=== PATIENT | female | born 1950 | race Caucasian/White ===

== ENCOUNTER 2017-02-03 12:53 | Day surgery (SDC) | payer OTHER ==
[2017-02-02 10:50] VITALS: BMI 34.5
[2017-02-03] MEDS ORDERED: PROPOFOL 20 ML ONE ×5 (14:00→14:24)
[2017-02-03 15:05] VITALS: TEMP 97.8
[2017-02-03 15:13] VITALS: PULSE 60
[2017-02-03 15:55] VITALS: BP 129/63
--- NOTE | 2017-02-07 12:39 | PATH ---
Surgical Pathology Report Patient Name: GELY APODACA [facility]. Rec. #: [id number] /Age/Gender: 1950 (Age: 66) / F Account: [id number] Location: [facility]-ENDOSCOPY Taken: 02/03/2017 Received: 02/06/2017 Reported: 02/07/2017 Physicians: Kermit Dove M.D. Specimen(s) Received A: BX ASCENDING COLON POLYP B: TRANSVERSE COLON POLYP Clinical History History of diverticulitis Polyps, version of colitis in sigmoid and rectum Final Diagnosis A. COLON, ASCENDING, BIOPSY: HYPERPLASTIC POLYP. B. COLON, TRANSVERSE, POLYPECTOMY: TUBULAR ADENOMA. Comment: Recommend correlation with clinical findings and follow up as clinically indicated. Electronically Signed Saulo Li M.D. Gross Description A. Received in formalin, labeled "biopsy ascending colon polyp" is a wall, irregular portion of soft tissue measuring 0.3 cm. in greatest dimension. The specimen is submitted in toto in one cassette. B. Received in formalin, labeled "transverse colon polyp" are 2 wall, irregular to polypoid portions of soft tissue measuring 0.1 and 0.4 cm. in greatest dimension. The specimens are submitted in toto in one cassette. 02/06/201702/06/2017
== END 2017-02-03 15:55 | disposition home or self-care (01) ==
LOC: JASU-ENDO 12:53
PROVIDERS: ATTEND Internal Medicine Gastroenterology
PROC: 0DBK8ZX Excision of Ascending Colon, Via Natural or Artificial Opening Endoscopic, Diagnostic (ICD-10-PCS; 2017-02-03)
PROC: 0DBL8ZX Excision of Transverse Colon, Via Natural or Artificial Opening Endoscopic, Diagnostic (ICD-10-PCS; principal; 2017-02-03 13:45)
DX: K57.30 Diverticulosis of large intestine without perforation or abscess without bleeding (principal); D12.2 Benign neoplasm of ascending colon; D12.4 Benign neoplasm of descending colon; D12.3 Benign neoplasm of transverse colon; K64.8 Other hemorrhoids; K52.89 Other specified noninfective gastroenteritis and colitis; Z93.3 Colostomy status
CPT/HCPCS: 88305-TC

== ENCOUNTER 2017-04-18 06:16 | Inpatient (IN) | payer OTHER ==
--- NOTE | 2017-04-17 11:22 | HP ---
DATE OF ADMISSION: 04/18/2017 DATE OF DICTATION: 02/20/2017 This is a nxv-thdtip-tpxuwhkpt history and physical examination for anticipated takedown of colostomy. ADMITTING DIAGNOSIS: Status colostomy, history of complicated perforated diverticulitis. BRIEF HISTORY: This is a 66-year-old female who, in October of 2015, required an emergency laparotomy with sigmoid colectomy, colostomy, and mucous fistula for perforated complicated diverticulitis. She had a protracted hospital course, but eventually recovered. She has been doing well as an outpatient and presents now for surgical management in hopes of reversal of her colostomy. PAST MEDICAL HISTORY: Consistent with hypertension and breast cancer, asthma, as well as complicated diverticulitis. PAST SURGICAL HISTORY: Includes a right mastectomy and the appendectomy as well as the sigmoid colectomy and colostomy. She had a colonoscopy prior to this admission to ensure that there was no other disease, and the colonoscopy was unremarkable. ALLERGIES: She has allergy to LEVAQUIN. FAMILY HISTORY: Negative for cancer in the immediate family. SOCIAL HISTORY: Negative for alcohol, negative for tobacco. REVIEW OF SYSTEMS: General: Denies fatigue or malaise. Cardiac: Denies chest pain or palpitations. Respiratory: Denies shortness of breath or wheeze. Gastrointestinal: No nausea, no vomiting. Genitourinary: Denies dysuria. Musculoskeletal: Denies joint pain or joint swelling. Psychiatric: Denies depression, anxiety, or hearing voices. PHYSICAL EXAMINATION: General: This is an obese 66-year-old female in no distress. HEENT: Her head is normocephalic. Her sclerae are anicteric. Neck: Supple. Chest: Clear. Abdomen: Soft. It is nontender. She has a well-healed midline scar. She has a mucous fistula that is almost completely overgrown by skin. Her colostomy is pink and protruding. ASSESSMENT: This is a 66-year-old female status colostomy with history of complicated diverticulitis. At this point, she wishes to have reversal. She will be admitted to the hospital. PLAN: Her anticipated admission date is April 18, 2017, with plans for surgery on April 19, 2017. She will receive IV hydration, bowel preparation. She will get invanz prophylaxis prior to incision. She will be medically optimized by Dr. Paul Nix prior to the surgery. She is anticipated to stay in the hospital for 5 postoperative days. She understands that she will need to be sent home with visiting nurse services, as well. Risks and benefits of the surgery have been explained to the patient in detail. These are including, but not limited to, the possibility of injury to viscera or bladder, the possibility of incisional hernia, the possibility of blood loss requiring blood transfusion, the possibility of anastomotic leak, the possibility of infection, the possibility of anastomotic stricture, plus a multitude of medical risks including, but not limited to, cardiac, neurologic, pulmonary, and vascular complications, even . The patient understands these risks and is agreeable to surgery. She also understands that this ia purely elective operation, and that the risks of surgery clearly outweigh the risks of leaving her colostomy as is, but for personal reasons and lifestyle choices, she wishes to undergo the risk of surgery in order to eliminate her colostomy. She understands that if she does have an anastomotic leak, she may require replacement of the colostomy in an emergency setting. ANTICIPATED SURGERY: Exploratory laparotomy and reversal of colostomy, takedown of colostomy, takedown of mucous fistula, and partial colectomy. DO YORDY SNEED/[id number]
[2017-04-18 07:42] VITALS: BMI 34.7
[2017-04-18] MEDS: hydrALAZINE HCL 50 MG TABLET (FP) PO SCH ×3 (08:38→22:20)
[2017-04-18] MEDS ORDERED: PEG 3350/NA SULF BICARB CL/KCL 4000 ML SOLN.RECON PO ONE (09:00)
[2017-04-18] MEDS ORDERED: ERTAPENEM SODIUM 1 GM in SODIUM CHLORIDE 50 ML IVPB ONE (09:00)
[2017-04-18] MEDS ORDERED: NEBIVOLOL 10 MG TABLET (FP) PO SCH (10:00)
[2017-04-18] MEDS ORDERED: HYDROCHLOROTHIAZIDE 25 MG TABLET (FP) PO SCH (10:00)
[2017-04-18] MEDS: DEXTROSE 5%-0.45% SALINE 1,000 ML IV SCH (11:12)
[2017-04-18] MEDS: VALSARTAN 160 MG TABLET (UD) PO SCH (11:16)
--- NOTE | 2017-04-18 14:32 | EKG ---
Test Reason : Blood Pressure : / mmHG Vent. Rate : 053 BPM Atrial Rate : 053 BPM P-R Int : 196 ms QRS Dur : 094 ms QT Int : 434 ms P-R-T Axes : 053 -16 021 degrees QTc Int : 407 ms SINUS BRADYCARDIA WITH SINUS ARRHYTHMIA OTHERWISE NORMAL ECG WHEN COMPARED WITH ECG OF 23-APR-2014 10:21, VENT. RATE HAS DECREASED BY 40 BPM Confirmed by ULIS SALGADO, SUZANNE ([id number]) on 04/18/2017 2:31:47 PM Referred By: Abhay VERDE Confirmed By:SUZANNE SMITH MD
[2017-04-18] MEDS: NEBIVOLOL 10 MG TABLET (FP) PO SCH (22:20)
[2017-04-19] MEDS: DEXTROSE 5%-0.45% SALINE 1,000 ML IV SCH ×2 (04:39→08:52)
[2017-04-19 05:11] LABS: HEMATOCRIT 40.6 % (32.4-45.2); HEMOGLOBIN 13.9 GM/dL (10.7-15.3); MCHC 34.3 g/dl (32.0-36.0); MEAN CELL VOLUME 87.7 fl (80-96); MEAN PLT VOLUME 8.5 fl (7.5-11.1); PLATELET COUNT 185 K/MM3 (134-434); RBC 4.63 M/mm3 (3.60-5.2); WHITE BLOOD COUNT 8.1 K/mm3 (4.0-10.0)
[2017-04-19 05:24] LABS: INR 1.14 (0.82-1.09); PROTHROMBIN TIME (PATIENT) 12.9 SEC (9.98-11.88)
[2017-04-19 05:27] LABS: ACTIVATED PTT 33.8 SECONDS (26.9-34.4)
[2017-04-19 05:35] LABS: ANION GAP 8 (8-16); BLOOD UREA NITROGEN 12 mg/dL (7-18); CALCIUM 8.6 mg/dL (8.5-10.1); CHLORIDE 109 mmol/L (98-107); CO2 26 mmol/L (21-32); CREATININE 0.9 mg/dL (0.55-1.02); GLUCOSE,RANDOM 115 mg/dL (74-106); POTASSIUM 3.3 mmol/L (3.5-5.1); SODIUM 143 mmol/L (136-145)
[2017-04-19] MEDS: hydrALAZINE HCL 50 MG TABLET (FP) PO SCH ×3 (06:39→22:54)
[2017-04-19] MEDS ORDERED: KCL 10 MEQ IVPB 10 MEQ/100 ML INFUS.BAG IVPB SCH (07:15)
[2017-04-19] MEDS ORDERED: POTASSIUM CHLORIDE 30 MEQ in SODIUM CHLORIDE 300 ML IVPB ONE (08:15)
[2017-04-19] MEDS ORDERED: PT OWN MED DRAWER 7, Y5N ONE ×3 (08:48→22:52)
[2017-04-19] MEDS ORDERED: ERTAPENEM SODIUM 1 GM in SODIUM CHLORIDE 50 ML IVPB ONE (09:00)
[2017-04-19] MEDS: NEBIVOLOL 10 MG TABLET (FP) PO SCH (09:02)
[2017-04-19] MEDS: VALSARTAN 160 MG TABLET (UD) PO SCH (09:03)
[2017-04-19] MEDS ORDERED: VALSARTAN 160 MG TABLET (UD) PO SCH (10:00)
[2017-04-19] MEDS ORDERED: HYDROCHLOROTHIAZIDE 12.5 MG CAPSULE (FP) PO SCH (10:00)
[2017-04-19] MEDS ORDERED: MIDAZOLAM HCL 2 MG/2 ML SINGLE DOSE VIAL ONE ×2 (12:12)
[2017-04-19] MEDS ORDERED: NEOSTIGMINE METHYLSULFATE 0.5 MG/ML - 10 ML MDV ONE ×2 (12:50→17:10)
[2017-04-19] MEDS ORDERED: BUPIVACAINE HCL/PF 0.25% (2.5MG/ML) 10 ML VIAL ONE (14:41)
[2017-04-19] MEDS ORDERED: BUPIVACAINE HCL/PF 0.5% (5MG/ML) 10 ML VIAL ONE (14:41)
[2017-04-19] MEDS ORDERED: DEXAMETHASONE SOD PHOSPHATE/PF 10 MG/ML SDV ONE (14:41)
[2017-04-19] MEDS ORDERED: ERTAPENEM SODIUM 1 GM VIAL ONE (14:45)
[2017-04-19] MEDS ORDERED: GlUCAGON HUMAN RECOMBINANT 1 MG/VIAL ONE (14:56)
[2017-04-19] MEDS ORDERED: PROPOFOL 20 ML ONE ×2 (15:11)
[2017-04-19] MEDS ORDERED: ROCURONIUM BROMIDE 50 MG/5 ML VIAL ONE ×2 (15:12→16:03)
[2017-04-19] MEDS ORDERED: SUCCINYLCHOLINE CHLORIDE 200 MG/10 ML VIAL ONE (15:12)
[2017-04-19] MEDS ORDERED: cefOXitin SODIUM 1 GM VIAL (RESTRICTED TO ID) IVPB ONE (15:20)
[2017-04-19] MEDS ORDERED: CEFOXITIN SODIUM 1 GM IVPB ONE (15:26)
[2017-04-19] MEDS ORDERED: LIDOCAINE HCL/PF 2% SDV 5ML VIAL ONE (15:30)
[2017-04-19] MEDS ORDERED: PHENYLEPHRINE HCL 10 MG/1 ML SINGLE DOSE VIAL ONE (15:30)
[2017-04-19] MEDS ORDERED: DEXAMETHASONE SOD PHOSPHATE 4 MG/1 ML VIAL ONE (15:30)
[2017-04-19] MEDS ORDERED: GLYCOPYRROLATE 0.2 MG/1 ML VIAL ONE ×2 (15:38→17:11)
[2017-04-19] MEDS ORDERED: fentaNYL CITRATE 250 MCG/5 ML VIAL ONE (15:41)
[2017-04-19] MEDS ORDERED: CALCIUM CHLORIDE 1 GM/10 ML *DISP.SYRIN ONE (16:56)
[2017-04-19] MEDS ORDERED: HYDROmorphone HCL CARPU-JECT 2 MG/1 ML DISP.SYRIN IVPUSH PRN (17:56)
--- NOTE | 2017-04-19 18:25 | OP ---
Operative Note - Note: Operative Date: 04/19/17 Pre-Operative Diagnosis: status colostomy, history complicated diverticulitis Operation: laparotomy, take down of colostomy and mucous fistula, left colectomy , reversal of colostomy, primary repair incisional hernia x 3, splenic flexure takedown, omental patch, rigid sigmoidoscopy, anal dilatation, lavage, extensive lysis of adhesions Findings: diseased left colon, parastomal hernia, incisional hernia at mucous fistula and upper pole of incision, adhesions Post-Operative Diagnosis: Same as Pre-op Surgeon: Mansoor Heart Svp Programmatic Tv: Wong Jaramillo Anesthesiologist/OFFICE SERVICES SPECIALIST: Kaley Leyva Anesthesia: General Specimens Removed: left colon with colostomy and mucous fistula with small portion of rectum Estimated Blood Loss (mls): 200
[2017-04-19] MEDS ORDERED: ONDANSETRON 4 MG/2 ML VIAL IVPUSH PRN (18:29)
[2017-04-19] MEDS ORDERED: HYDROmorphone *PCA* 10MG/50ML DISP.SYRIN PCA SCH (18:30)
[2017-04-19] MEDS ORDERED: HYDROmorphone *PCA* 10MG/50ML DISP.SYRIN PCA ONE ×2 (18:40→18:55)
[2017-04-19] MEDS ORDERED: ACETAMINOPHEN 325 MG TABLET (FP) PO PRN (18:42)
[2017-04-19] MEDS ORDERED: NEBIVOLOL 10 MG TABLET (FP) PO SCH (22:00)
[2017-04-20] MEDS: hydrALAZINE HCL 50 MG TABLET (FP) PO SCH ×3 (06:27→22:15)
[2017-04-20] MEDS: DEXTROSE 5%-0.45% SALINE 1,000 ML IV SCH ×2 (06:28→14:27)
[2017-04-20 08:20] LABS: HEMATOCRIT 40.3 % (32.4-45.2); HEMOGLOBIN 13.2 GM/dL (10.7-15.3); MCH 29.1 pg (25.7-33.7); MCHC 32.7 g/dl (32.0-36.0); MEAN CELL VOLUME 88.9 fl (80-96); MEAN PLT VOLUME 9.1 fl (7.5-11.1); PLATELET COUNT 201 K/MM3 (134-434); RBC 4.53 M/mm3 (3.60-5.2); RDW 14.1 % (11.6-15.6); WHITE BLOOD COUNT 16.7 K/mm3 (4.0-10.0)
[2017-04-20 08:58] LABS: ANION GAP 10 (8-16); BLOOD UREA NITROGEN 18 mg/dL (7-18); CHLORIDE 107 mmol/L (98-107); CO2 24 mmol/L (21-32); CREATININE 1.1 mg/dL (0.55-1.02); GLUCOSE,RANDOM 143 mg/dL (74-106); MAGNESIUM 1.8 mg/dL (1.8-2.4); PHOSPHOROUS 3.9 mg/dL (2.5-4.9); POTASSIUM 3.6 mmol/L (3.5-5.1); SODIUM 141 mmol/L (136-145)
[2017-04-20] MEDS ORDERED: HYDROCHLOROTHIAZIDE 12.5 MG CAPSULE (FP) PO SCH ×2 (10:00)
[2017-04-20] MEDS: ENOXAPARIN NA (PORCINE) 40 MG/0.4 ML DISP.SYRIN SQ SCH (10:17)
[2017-04-20] MEDS: PANTOPRAZOLE SODIUM 40 MG VIAL IVPUSH SCH (10:19)
[2017-04-20] MEDS: VALSARTAN 160 MG TABLET (UD) PO SCH (10:19)
[2017-04-20] MEDS: NEBIVOLOL 10 MG TABLET (FP) PO SCH ×2 (10:19→22:15)
--- NOTE | 2017-04-20 11:19 | PN ---
Progress Note (short form) - Note Progress Note: Pt is day#1 s/p lap colostomy reversal. Doing well on BELT CHANGER, minimal pain, no complaints. No apparent anesthetic complications. Continue current treatment.
[2017-04-20] MEDS ORDERED: ERTAPENEM SODIUM 1 GM in SODIUM CHLORIDE 50 ML IVPB ONE (12:00)
[2017-04-20] MEDS ORDERED: ERTAPENEM SODIUM 1 GM/50 ML PRE-DOCKED IVPB ONE (12:00)
--- NOTE | 2017-04-20 13:42 | PN ---
Progress Note (short form) - Note Progress Note: surgery pt seen and examined. feels tired/weak. minimal pain. not oob. 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
--- NOTE | 2017-04-20 16:27 | OP ---
DATE OF OPERATION: 04/19/2017 PREOPERATIVE DIAGNOSIS: Status colostomy with history of complicated diverticulitis. POSTOPERATIVE DIAGNOSES: 1. Status colostomy with history of complicated diverticulitis. 2. Parastomal hernia. 3. Incisional hernia x2. PROCEDURE: Exploratory laparotomy, takedown of colostomy, takedown of mucous fistula, reversal of colostomy, left colectomy with brfm-cw-nbst anastomosis, splenic flexure takedown, omental patch, extensive lysis of adhesions, lavage, primary repair of incisional hernia x3, rigid sigmoidoscopy, anal dilatation. SURGEON: Mansoor Heart DO EXTENSION EDUCATOR: Wong Jaramillo MD ANESTHESIOLOGIST: Kaley Leyva MD BLOOD LOSS: Approximately 200 mL. SPECIMEN: Left colon with colostomy and mucous fistula with small portion of rectum. DRAINS: A Jame-Israel drain in the pelvis. DISPOSITION: Recovery room in stable condition. INTRAOPERATIVE FINDINGS: Extensive adhesions with a parastomal hernia, with a hernia around the mucous fistula and a ventral hernia just above the midline incision. Also, diseased left-sided colon with diverticula. BRIEF HISTORY: A 66-year-old female who previously underwent emergency surgery with colostomy and mucous fistula for complicated, perforated diverticulitis. She presents now for reversal. DESCRIPTION OF PROCEDURE: The patient was placed in the lithotomy position. The abdomen was prepped and draped in sterile fashion. A vertical incision was made from the umbilicus down to the pubis. The skin was skived around the mucous fistula. Electrocautery was used to go through subcutaneous tissue. The fascia was opened into the midline. The abdominal cavity was entered sharply. Significant adhesions were taken down off the abdominal wall. The midline was completely open to the mucous fistula. This was dissected off the fascia and completely freed of its abdominal wall attachments. Small-bowel adhesions were carefully taken off of the mucous fistula. It was noted to be viable. At this point, attention was turned toward the colostomy. An ellipse of skin was cut out around the colostomy. The colostomy was then dissected off of its adipose attachments and fascial attachments and delivered into the abdominal cavity. The segment of distal descending colon appeared to have disease with diverticula. Therefore, decision was made in order to do a splenic flexure takedown in order to anastomose to a healthier segment. Splenic flexure was taken down using electrocautery as well as LigaSure device. At this point, a portion of distal transverse colon was anastomosed to the rectum in a gbkz-ik-qbra fashion. The transverse colon was anastomosed to the rectum in a jxzb-ob-vhbl fashion using a PARDEEP 80 blue-load stapler. A TA stapler was used to close the enterotomy. The mesentery of the left colon was divided with LigaSure device. An omental patch was sewn to the transverse staple line. At this point, the customer marketing assistant went below. An anal dilatation was done. A rigid sigmoidoscopy was done up to the anastomosis without passing it. It was inspected, appeared to be viable from the inside. Air insufflation test was done under water with no leakage noted. The colostomy was also visually inspected, externally appeared to be viable. It was patent as far as palpation was done, and air was able to pass from proximal to distal and distal to proximal. At this point, a vigorous lavage was done, and all return was clear. A Jame-Israel drain was left in the pelvis next to the anastomosis and brought out through the right lower quadrant. The patient was noted previously to have a parastomal hernia at the colostomy takedown site. She also had a hernia at the mucous fistula takedown site, and there was a ventral hernia approximately 3 cm above the upper portion of the incision. Next, the peritoneum of the colostomy site was closed with a running PDS suture. The midline incision was then closed with running PDS sutures and interrupted PDS sutures. This incorporated, completely closing, the superior and inferior hernias. These are likely to recur as no mesh was used. Attention was then turned toward the anterior fascia of the colostomy site, which was closed with interrupted 0 PDS sutures. The wound was then irrigated, left open , and packed with Iodoform gauze. Dry dressing was placed. The Jame-Israel drain was secured with a silk drain stitch. Overall, the patient tolerated the procedure well. There were no complications. Foster catheter, which was placed at the beginning of the operation, was removed at the end. The patient's disposition was to recovery room, then to the regular floor where she would await return of bowel function and expect to stay in the hospital for at least one week. Patient very likely is expected to develop incisional hernias from this procedure due to the poor fascial integrity and the necessity of repairing 3 incisional hernias primarily without mesh. DO YORDY SNEED/[id number] MTDD
[2017-04-20] MEDS ORDERED: PT OWN MED DRAWER 7, Y5N ONE (16:49)
[2017-04-21] MEDS: DEXTROSE 5%-0.45% SALINE 1,000 ML IV SCH ×3 (03:00→18:29)
[2017-04-21] MEDS: hydrALAZINE HCL 50 MG TABLET (FP) PO SCH ×3 (06:37→22:11)
[2017-04-21 08:38] LABS: BASO % 0.7 % (0-2.0); EOS % 0.9 % (0-4.5); HEMATOCRIT 38.7 % (32.4-45.2); HEMOGLOBIN 12.5 GM/dL (10.7-15.3); LYMPH % 11.9 % (8-40); MCH 28.9 pg (25.7-33.7); MCHC 32.3 g/dl (32.0-36.0); MEAN CELL VOLUME 89.6 fl (80-96); MEAN PLT VOLUME 9.2 fl (7.5-11.1); MONO % 7.1 % (3.8-10.2); NEUT % 79.4 % (42.8-82.8); PLATELET COUNT 172 K/MM3 (134-434); RBC 4.32 M/mm3 (3.60-5.2); WHITE BLOOD COUNT 13.2 K/mm3 (4.0-10.0)
[2017-04-21 08:50] LABS: ANION GAP 7 (8-16); BLOOD UREA NITROGEN 19 mg/dL (7-18); CALCIUM 8.5 mg/dL (8.5-10.1); CHLORIDE 108 mmol/L (98-107); CO2 26 mmol/L (21-32); GLUCOSE,RANDOM 101 mg/dL (74-106); PHOSPHOROUS 2.4 mg/dL (2.5-4.9); POTASSIUM 3.3 mmol/L (3.5-5.1); SODIUM 141 mmol/L (136-145)
[2017-04-21] MEDS ORDERED: PT OWN MED DRAWER 7, Y5N ONE (09:48)
[2017-04-21] MEDS: ENOXAPARIN NA (PORCINE) 40 MG/0.4 ML DISP.SYRIN SQ SCH (09:52)
[2017-04-21] MEDS: PANTOPRAZOLE SODIUM 40 MG VIAL IVPUSH SCH (09:52)
[2017-04-21] MEDS: VALSARTAN 160 MG TABLET (UD) PO SCH (09:52)
[2017-04-21] MEDS: NEBIVOLOL 10 MG TABLET (FP) PO SCH ×2 (09:52→22:10)
--- NOTE | 2017-04-21 10:29 | PN ---
Progress Note (short form) - Note Progress Note: POD #2 - s/p laparotomy/colostomy reversal under GA. VSS. Pt. doing well, resting comfortably in bed. No complaints. Has only used the DISTRIBUTION SPECIALIST once last night and once this morning. Will discontinue DISTRIBUTION SPECIALIST and order oxycodone. Continue current care.
[2017-04-21] MEDS ORDERED: oxyCODONE HCL 5 MG TABLET PO PRN (10:30)
--- NOTE | 2017-04-21 14:30 | PN ---
Progress Note (short form) - Note Progress Note: surgery pt seen and examined. still not walking. minimal pain. not oob. afebrile abd-soft, nt, dressing c/d/i, brittany sero-sanguinous u/o 1250 A/P 1) Pod#2- cont npo, taveras, brittany, ivf, finish abx 2) pain- morphine, lortab 3) prophylaxis- lovenox, protonix, oob, spirometer 4) htn- on home meds 5) elevated cr- resolved
[2017-04-21] MEDS ORDERED: POTASSIUM PHOSPHATE 27 MM in DEXTROSE 5%-WATER - 250 ML IVPB ONE (15:00)
[2017-04-21] MEDS ORDERED: POTASSIUM PHOSPHATE 27 MM in DEXTROSE 5%-WATER - 500 ML IVPB ONE (15:00)
[2017-04-21] MEDS: oxyCODONE HCL 5 MG TABLET PO PRN (20:37)
[2017-04-22] MEDS: hydrALAZINE HCL 50 MG TABLET (FP) PO SCH ×3 (05:55→22:19)
[2017-04-22 08:06] LABS: BASO % 0.5 % (0-2.0); EOS % 2.8 % (0-4.5); HEMATOCRIT 36.8 % (32.4-45.2); HEMOGLOBIN 12.3 GM/dL (10.7-15.3); MCH 29.7 pg (25.7-33.7); MCHC 33.3 g/dl (32.0-36.0); MEAN CELL VOLUME 88.9 fl (80-96); MEAN PLT VOLUME 8.5 fl (7.5-11.1); MONO % 7.9 % (3.8-10.2); NEUT % 76.8 % (42.8-82.8); PLATELET COUNT 176 K/MM3 (134-434); RBC 4.13 M/mm3 (3.60-5.2); WHITE BLOOD COUNT 10.1 K/mm3 (4.0-10.0)
[2017-04-22 08:36] LABS: MAGNESIUM 1.9 mg/dL (1.8-2.4)
--- NOTE | 2017-04-22 10:00 | PN ---
Progress Note (short form) - Note Progress Note: surgery pt seen and examined. sitting in chair. flatus. feels well. afebrile abd-soft, nt, dressing c/d/i, brittany sero-sanguinous u/0 1425 A/P 1) Pod#3- cont npo, brittany, ivf, d/c taveras 2) pain- morphine, lortab 3) prophylaxis- lovenox, protonix, oob, spirometer 4) htn- on home meds 5) elevated cr- resolved will change packing tomorrow
[2017-04-22] MEDS ORDERED: PT OWN MED DRAWER 7, Y5N ONE ×2 (10:42→22:16)
[2017-04-22] MEDS: VALSARTAN 160 MG TABLET (UD) PO SCH (10:46)
[2017-04-22] MEDS: NEBIVOLOL 10 MG TABLET (FP) PO SCH ×2 (10:46→22:19)
[2017-04-22] MEDS: ENOXAPARIN NA (PORCINE) 40 MG/0.4 ML DISP.SYRIN SQ SCH (10:46)
[2017-04-22] MEDS: PANTOPRAZOLE SODIUM 40 MG VIAL IVPUSH SCH (10:47)
[2017-04-22] MEDS: DEXTROSE 5%-0.45% SALINE 1,000 ML IV SCH ×2 (11:53→22:19)
[2017-04-23] MEDS: hydrALAZINE HCL 50 MG TABLET (FP) PO SCH ×3 (05:56→22:21)
[2017-04-23] MEDS: oxyCODONE HCL 5 MG TABLET PO PRN ×3 (06:27→22:24)
[2017-04-23 08:56] LABS: BASO % 0.6 % (0-2.0); EOS % 4.1 % (0-4.5); HEMATOCRIT 36.7 % (32.4-45.2); HEMOGLOBIN 12.2 GM/dL (10.7-15.3); LYMPH % 9.7 % (8-40); MCH 29.7 pg (25.7-33.7); MCHC 33.1 g/dl (32.0-36.0); MEAN CELL VOLUME 89.5 fl (80-96); MEAN PLT VOLUME 8.5 fl (7.5-11.1); MONO % 6.9 % (3.8-10.2); NEUT % 78.7 % (42.8-82.8); PLATELET COUNT 190 K/MM3 (134-434); RDW 13.8 % (11.6-15.6); WHITE BLOOD COUNT 9.3 K/mm3 (4.0-10.0)
[2017-04-23 09:23] LABS: ANION GAP 9 (8-16); BLOOD UREA NITROGEN 13 mg/dL (7-18); CALCIUM 8.6 mg/dL (8.5-10.1); CHLORIDE 109 mmol/L (98-107); CO2 27 mmol/L (21-32); CREATININE 0.8 mg/dL (0.55-1.02); GLUCOSE,RANDOM 117 mg/dL (74-106); MAGNESIUM 1.9 mg/dL (1.8-2.4); PHOSPHOROUS 3.1 mg/dL (2.5-4.9); POTASSIUM 3.4 mmol/L (3.5-5.1); SODIUM 145 mmol/L (136-145)
[2017-04-23] MEDS ORDERED: PT OWN MED DRAWER 7, Y5N ONE ×2 (10:28→22:20)
[2017-04-23] MEDS: ENOXAPARIN NA (PORCINE) 40 MG/0.4 ML DISP.SYRIN SQ SCH (10:31)
[2017-04-23] MEDS: NEBIVOLOL 10 MG TABLET (FP) PO SCH ×2 (10:31→22:21)
[2017-04-23] MEDS: VALSARTAN 160 MG TABLET (UD) PO SCH (10:31)
[2017-04-23] MEDS: PANTOPRAZOLE SODIUM 40 MG VIAL IVPUSH SCH (10:32)
[2017-04-23] MEDS: DEXTROSE 5%-0.45% SALINE 1,000 ML IV SCH ×2 (10:44→19:29)
--- NOTE | 2017-04-23 15:39 | PN ---
Progress Note (short form) - Note Progress Note: surgery pt seen and examined. sitting in chair. flatus. feels well. afebrile abd-soft, nt, dressing c/d/i, brittany sero-sanguinous u/0 1425 Laboratory Tests 04/21/17 04/21/17 04/22/17 07:00 07:00 07:15 WBC 13.2 H 10.1 H Potassium 3.3 L Phosphorus 2.4 L D 04/23/17 04/23/17 08:00 08:00 WBC 9.3 Potassium 3.4 L Phosphorus A/P 1) Pod#4- cont npo, brittany, ivf, 2) pain- morphine, lortab 3) prophylaxis- lovenox, protonix, oob, spirometer 4) htn- on home meds 5) elevated cr- resolved 6) wound- deeply irrigate and pack with iodoform daily 7) hypokalemia- will replace 8) hypophosphatemia- resolved
[2017-04-23] MEDS ORDERED: KCL 10 MEQ IVPB 10 MEQ/100 ML INFUS.BAG IVPB SCH (15:45)
[2017-04-23] MEDS ORDERED: POTASSIUM CHLORIDE 30 MEQ in SODIUM CHLORIDE 300 ML IVPB ONE (16:00)
[2017-04-24] MEDS: hydrALAZINE HCL 50 MG TABLET (FP) PO SCH ×3 (06:03→22:28)
[2017-04-24 08:21] LABS: BASO % 0.5 % (0-2.0); EOS % 4.3 % (0-4.5); HEMATOCRIT 38.7 % (32.4-45.2); HEMOGLOBIN 12.7 GM/dL (10.7-15.3); LYMPH % 14.3 % (8-40); MCH 29.3 pg (25.7-33.7); MCHC 32.8 g/dl (32.0-36.0); MEAN CELL VOLUME 89.6 fl (80-96); MEAN PLT VOLUME 9.2 fl (7.5-11.1); MONO % 8.5 % (3.8-10.2); NEUT % 72.4 % (42.8-82.8); PLATELET COUNT 220 K/MM3 (134-434); RBC 4.32 M/mm3 (3.60-5.2); RDW 13.8 % (11.6-15.6); WHITE BLOOD COUNT 9.6 K/mm3 (4.0-10.0)
[2017-04-24 08:43] LABS: ANION GAP 10 (8-16); BLOOD UREA NITROGEN 12 mg/dL (7-18); CALCIUM 8.1 mg/dL (8.5-10.1); CHLORIDE 108 mmol/L (98-107); CO2 24 mmol/L (21-32); CREATININE 0.9 mg/dL (0.55-1.02); GLUCOSE,RANDOM 109 mg/dL (74-106); MAGNESIUM 2.1 mg/dL (1.8-2.4); PHOSPHOROUS 2.6 mg/dL (2.5-4.9); POTASSIUM 3.5 mmol/L (3.5-5.1); SODIUM 142 mmol/L (136-145)
[2017-04-24] MEDS ORDERED: PT OWN MED DRAWER 7, Y5N ONE ×2 (09:57→22:09)
[2017-04-24] MEDS: ENOXAPARIN NA (PORCINE) 40 MG/0.4 ML DISP.SYRIN SQ SCH (10:03)
[2017-04-24] MEDS: NEBIVOLOL 10 MG TABLET (FP) PO SCH ×2 (10:03→22:28)
[2017-04-24] MEDS: VALSARTAN 160 MG TABLET (UD) PO SCH (10:03)
[2017-04-24] MEDS: PANTOPRAZOLE SODIUM 40 MG VIAL IVPUSH SCH (10:23)
[2017-04-24] MEDS: DEXTROSE 5%-0.45% SALINE 1,000 ML IV SCH (11:32)
--- NOTE | 2017-04-24 11:53 | PN ---
Progress Note (short form) - Note Progress Note: surgery pt seen and examined. sitting in chair. flatus. wants food afebrile abd-soft, nt, incision clean A/P 1) Pod#5- full liquids, cont brittany, stop ivf, 2) pain- morphine, lortab 3) prophylaxis- lovenox, protonix, oob, spirometer 4) htn- on home meds 5) elevated cr- resolved 6) wound- deeply irrigate and pack with iodoform daily 7) hypokalemia- resolved 8) hypophosphatemia- resolved
--- NOTE | 2017-04-24 14:36 | PATH ---
Surgical Pathology Report Patient Name: GELY APODACA Med. Rec. #: [id number] /Age/Gender: 1950 (Age: 66) / F Account: [id number] Location: [address] [place] [address]/[facility] Taken: 04/19/2017 Received: 04/20/2017 Reported: 04/24/2017 Physicians: Mansoor Heart M.D. Specimen(s) Received A: MUCOUS FISTULA B: COLOSTOMY STOMA LEFT COLON Clinical History Status post colostomy, history of complicated perforated diverticulitis Final Diagnosis A. MUCOUS FISTULA, RESECTION: SKIN WITH ADHERANT PORTION OF BOWEL CONSISTENT WITH MUCOUS FISTULA. PORTION OF BOWEL SHOWS SUPERFICIAL ULCERATION, WITH PERICOLONIC ACUTE AND CHRONIC INFLAMMATION WITH FIBROSIS B. COLOSTOMY AND LEFT COLON, EXCISION: SKIN WITH ATTACHED SEGMENT OF COLON CONSISTENT WITH COLOSTOMY. SEGMENT OF COLON SHOWS SEROSAL FIBROVASCULAR ADHESIONS, BUT NO MUCOSAL LESIONS ARE IDENTIFIED. Comment: Also see [id number]. Electronically Signed Saulo Li M.D. Gross Description A. Received in formalin labeled "mucus fistula," is a 4 cm in length portion of bowel which is surfaced by a 1.5 x 0.7 cm wall, elliptical portion of skin. The bowel displays an open mucosal margin. The mucosa is wall with normal folds. Research Attorney sections are submitted in 2 cassettes as follows: 1-skin with attached colon; 2-mucosal margin. B. Received in formalin labeled "colostomy and left colon," is a 15 cm in length portion of bowel which is surfaced by a 3.8 x 2.0 cm wall, elliptical portion of skin with a central stoma. The bowel displays an open mucosal margin. The serosa is wall-[place] and smooth with moderate attached pericolonic adipose tissue. The mucosa is wall with normal folds. No mucosal masses are identified. Sectioning reveals multifocal uncomplicated diverticula. Research Attorney sections are submitted in 6 cassettes as follows: 1-open mucosal margin; 2-stoma; 1-4-hugulehwuil; 6-additional freight representative mucosa. 04/20/201704/20/2017
[2017-04-25] MEDS: hydrALAZINE HCL 50 MG TABLET (FP) PO SCH ×2 (06:47→13:42)
[2017-04-25] MEDS ORDERED: PT OWN MED DRAWER 7, Y5N ONE (10:34)
[2017-04-25] MEDS: ENOXAPARIN NA (PORCINE) 40 MG/0.4 ML DISP.SYRIN SQ SCH (10:52)
[2017-04-25] MEDS: VALSARTAN 160 MG TABLET (UD) PO SCH (10:52)
[2017-04-25] MEDS: NEBIVOLOL 10 MG TABLET (FP) PO SCH (10:52)
[2017-04-25] MEDS: PANTOPRAZOLE SODIUM 40 MG VIAL IVPUSH SCH (10:53)
[2017-04-25 14:52] VITALS: TEMP 98.1
[2017-04-25 15:12] VITALS: BP 140/75; PULSE 74
--- NOTE | 2017-04-25 15:31 | DS ---
DATE OF ADMISSION: 04/18/2017 DATE OF DISCHARGE: 04/25/2017 ADMITTING DIAGNOSIS: Status colostomy with history of complicated, perforated diverticulitis. BRIEF HISTORY: This is a 66-year-old female who had previously undergone emergency surgery for a perforated diverticulitis involving her colostomy and mucous fistula. She also developed a parastomal hernia. She had a tough postoperative course, eventually resolved, in good health, and presents now for reversal of her colostomy. The patient was admitted on April 18 for IV hydration and bowel preparation. On April 19, she underwent reversal of her colostomy. Please reference my operative report from that date for further details. Postoperatively, she had the usual expected ileus. She was treated with intravenous fluids and narcotic pain medication. Her wound was left open at the time of surgery and has been packed with Iodoform gauze and irrigated with saline. At the time of her discharge, she is tolerating liquid diet, ambulating, and voiding. She will have visiting nurse services arranged to irrigate her wound and pack it at home. She will go home on a liquid diet until Monday. At which point, she will advance to a regular diet. She does not require any narcotics, and she will resume her home medications of vitamin D, Lipitor, diazepam, hydralazine, nebivolol, and Benicar. At the time of her discharge, her pathology is back of her colostomy and her mucous fistula, showing no evidence of malignancy. DO YORDY SNEED/[id number]
== END 2017-04-25 15:45 | disposition home health service (06) | DRG 330 ==
LOC: UNDOADMIN 06:16 → JSAMEDAYSX 06:16 → J6S 06:27 → EDSTATUS 08:00
PROVIDERS: ADMIT Surgery; ATTEND Surgery
PROC: 0DNE0ZZ Release Large Intestine, Open Approach (ICD-10-PCS; 2017-04-19)
PROC: 0DN80ZZ Release Small Intestine, Open Approach (ICD-10-PCS; 2017-04-19)
PROC: 0DJD8ZZ Inspection of Lower Intestinal Tract, Via Natural or Artificial Opening Endoscopic (ICD-10-PCS; 2017-04-19)
PROC: 0D7P8ZZ Dilation of Rectum, Via Natural or Artificial Opening Endoscopic (ICD-10-PCS; 2017-04-19)
PROC: 3E1H78Z Irrigation of Lower GI using Irrigating Substance, Via Natural or Artificial Opening (ICD-10-PCS; 2017-04-19)
PROC: 0DQL0ZZ Repair Transverse Colon, Open Approach (ICD-10-PCS; principal; 2017-04-19 10:00)
PROC: 0WQF0ZZ Repair Abdominal Wall, Open Approach (ICD-10-PCS; 2017-04-19 10:00)
DX: Z43.3 Encounter for attention to colostomy (principal); K63.2 Fistula of intestine; K43.2 Incisional hernia without obstruction or gangrene; K43.5 Parastomal hernia without obstruction or gangrene; K66.0 Peritoneal adhesions (postprocedural) (postinfection); K57.30 Diverticulosis of large intestine without perforation or abscess without bleeding; E87.6 Hypokalemia; I10 Essential (primary) hypertension; E83.39 Other disorders of phosphorus metabolism
CPT/HCPCS: 36415; 80048; 83735; 84100; 85025; 85027; 85610; 85730; 86850; 86900; 86901; 88304-TC; 93005; 93010; 94010; 94760; 97116-GP; 97161-GP

== ENCOUNTER 2017-10-13 16:48 | Observation (INO) | payer OTHER ==
--- NOTE | 2017-10-13 17:06 | PDOC ---
History of Present Illness - History of Present Illness Initial Comments: 10/13/17 17:46 Patient is a 67 year old female with significant medical hx of prior TIAs in the past, complicated diverticulitis, HTN and breast CA (chemoradiation therapy , s/p right mastectomy) who is presenting to the ED with left sided facial droop late afternoon yesterday. The patient denies numbness, weakness, or tingling. The patient had an ECHO approximately 1 year ago. Denies head trauma, loss of consciousness, nausea, vomiting. Past Surgeries: appendectomy, hysterectomy PCP: Paul Nix Oncologist: Jeremy Post <Letha Hernandez - Last Filed: 10/13/17 20:01> <Rizwan Cortez I - Last Filed: 10/13/17 23:11> - General History Source: Patient Exam Limitations: No Limitations <Zina Juarez - Last Filed: 10/14/17 09:04> - General Chief Complaint: Facial Droop Stated Complaint: LEFT SIDE FACIAL DROOP Time Seen by Provider: 10/13/17 16:50 Past History <Letha Hernandez - Last Filed: 10/13/17 20:01> <Rizwan Cortez I - Last Filed: 10/13/17 23:11> - Past Medical History Anemia: No Asthma: No Cancer: Yes (BREAST) Cardiac Disorders: No CVA: No COPD: Yes (LUNG DISEASE, 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) CHF: No Dementia: No Diabetes: No GI Disorders: Yes (HH, GASTRITIS, ESOPHAGITIS, DIVERTICULOSIS) Disorders: Yes (hx kidney stones) HTN: Yes Hypercholesterolemia: No Kidney Stones: Yes Liver Disease: Yes (FATTY LIVER) Seizures: No Thyroid Disease: No - Surgical History Abdominal Surgery: Yes (COLON RESECTION WITH COLOSTOMY) Appendectomy: Yes Cardiac Surgery: No Cholecystectomy: No Lung Surgery: No Neurologic Surgery: No Orthopedic Surgery: No - Immunization History Immunization Up to Date: Yes - Suicide/Smoking/Psychosocial Hx Smoking Status: No Smoking History: Never smoked Have you smoked in the past 12 months: No Number of Cigarettes Smoked Daily: 0 Hx Alcohol Use: No Drug/Substance Use Hx: No Substance Use Type: None Hx Substance Use Treatment: No <Zina Juarez - Last Filed: 10/14/17 09:04> - Past Medical History Allergies/Adverse Reactions: Allergies Allergy/AdvReac Type Severity Reaction Status Date / Time levofloxacin [From Levaquin] Allergy Itching Verified 10/13/17 16:51 tomato AdvReac Verified 10/13/17 16:51 Home Medications: Ambulatory Orders Nebivolol HCl [Bystolic] 20 mg PO BID 10/12/15 Hydrochlorothiazide [Hctz -] 12.5 mg PO DAILY 01/01/16 Olmesartan Medoxomil [Benicar -] 40 mg PO DAILY 01/01/16 hydrALAZINE HCL [Apresoline -] 50 mg PO TID 02/02/17 Cholecalciferol (Vitamin D3) [Vitamin D3] 1,000 unit PO DAILY 10/13/17 Review of Systems - Review of Systems Able to Perform ROS?: Yes Comments:: 10/13/17 17:49 GENERAL/CONSTITUTIONAL: No fever or chills. No weakness. HEAD, EYES, EARS, NOSE AND THROAT: No change in vision. No ear pain or discharge. No sore throat. CARDIOVASCULAR: No chest pain or shortness of breath. RESPIRATORY: No cough, wheezing, or hemoptysis. GASTROINTESTINAL: No nausea, vomiting, diarrhea or constipation. GENITOURINARY: No dysuria, frequency, or change in urination. MUSCULOSKELETAL: No joint or muscle swelling or pain. No neck or back pain. SKIN: No rash NEUROLOGIC: (+) Left sided facial droop. No headache, vertigo, loss of consciousness, or change in strength/sensation. ENDOCRINE: No increased thirst. No abnormal weight change. HEMATOLOGIC/LYMPHATIC: No anemia, easy bleeding, or history of blood clots. ALLERGIC/IMMUNOLOGIC: No hives or skin allergy. <Letha Hernandez - Last Filed: 10/13/17 20:01> *Physical Exam - Vital Signs Last Vital Signs Temp Pulse Resp BP Pulse Ox 98.5 F 74 20 138/63 98 10/13/17 16:49 10/13/17 16:49 10/13/17 16:49 10/13/17 16:49 10/13/17 16:49 - Physical Exam Comments: 10/13/17 17:50 GENERAL: The patient is in no acute distress. HEAD: Normal with no signs of trauma. EYES: PERRLA, EOMI, sclera anicteric, conjunctiva clear. ENT: Ears normal, nares patent, oropharynx clear without exudates. Moist mucous membranes. NECK: Normal range of motion, supple without lymphadenopathy, JVD, or masses. LUNGS: Breath sounds equal, clear to auscultation bilaterally. No wheezes, and no crackles. HEART:Regular rate and rhythm, normal S1 and S2 without murmur, rub or gallop. ABDOMEN: Soft, nontender, normoactive bowel sounds. No guarding, no rebound. No masses palpable. EXTREMITIES: Normal range of motion, no edema. No clubbing or cyanosis. No erythema, or tenderness. NEUROLOGICAL: Alert and oriented x3. Cranial nerves II through XII are intact. Normal speech. 5 out of 5 motor strength x4 extremities. No gross sensory deficits. Qaxqds-krum-djpsry is intact. No pronator drift. MUSCULOSKELETAL: Back non-tender to palpation, no CVA tenderness SKIN: Warm, Dry, normal turgor, no rashes or lesions noted. <Letha Hernandez - Last Filed: 10/13/17 20:01> - Vital Signs Last Vital Signs Temp Pulse Resp BP Pulse Ox 98.5 F 74 20 138/63 98 10/13/17 16:49 10/13/17 16:49 10/13/17 16:49 10/13/17 16:49 10/13/17 16:49 <Rizwan Cortez I - Last Filed: 10/13/17 23:11> NIH Stroke Scale - Last Known Well Date/Time & Onset Date Last Known Well: 10/12/17 Time Last Known Well: 22:00 - Initial Evaluation Level of consciousness: Alert Ask patient the month and their age: Answers both correctly Ask patient to open & close eyes; make fist and let go: Obeys both correctly Best gaze (horizontal eye movement): Normal Visual field testing: No visual field loss Facial paresis (Show teeth/raise eyebrows/close eyes tight): Minor paralysis ( flattened nasolabial fold, asymmetry on smiling) Motor Function: Left Arm: Normal Motor Function: Right Arm: Normal (extends arm 90 (or 45) degrees for 10 seconds without drift Motor Function: Left Leg: Normal (extends leg 30 degrees for 5 seconds without drift) Motor Function: Right Leg: Normal (extends leg 30 degrees for 5 seconds without drift) Limb Ataxia: No ataxia Sensory(Use pinprick test arms,legs,trunk,face/side to side): Normal Best language (Describe picture, name items, read sentences): No Aphasia Dysarthria (read several words): Normal articulation Extinction and Inattention: No abnormality - Total Score NIH Stroke Scale Score: 1 <Zina Juarez - Last Filed: 10/14/17 09:04> tPA Exclusion checklist 3-4.5h - Time Elapsed Date last known well: 10/12/17 Time last known well: 22:00 Elaspsed time: 1 Day(s) and 11 Hour(s) and 2 Minutes - Thrombolytic Therapy Candidate Is patient eligible for thrombolytic therapy: No - Exclusion Criteria 3-4.5 hr SBP greater than 185 or DBP greater than 110mmHg despite tx: No Recent IC/spinal surgery,head trauma or stroke<3mos.: No Hx IC hemorrhage, IC neoplasm, AV malformation or aneurysm: No Active internal bleeding: No Blding diathesis(low plt ct, inc PTT,INR>1.7 or use of NOAC): No Symptoms suggest subarachnoid hemorrhage: No CT demonstrates multilobar infarct(>1/3 cerebral hemiphere): No Arterial puncture at noncompressible site in previous 7 days: No Blood glucose concentration less than 50mg/dL (2.7mmol/L): No - Relative Exclusion Criteria 3-4.5 hr Life expectancy <1 yr or severe co-morbid illness: No : No Patient/family refused: No Rapid improvement: No Stroke severity too mild: Yes Recent acute IA (w/in previous 3 months): No Seizure at onset with postictal residual neuro impairments: No Major surgery or serious trauma w/in previous 14 days: No Recent GI or hemorrhage (w/in previous 21 days): No - Add'l Relative Exclusion 3-4.5 hr Age > 80: No Hx of both diabetes AND prior ischemic stroke: No Taking an oral anticoagulant regardless of INR: No NIHSS >25: No - Ineligibility reason(s) Reasons No tPA given: Outside of window - delayed arrival <Zina Juarez - Last Filed: 10/14/17 09:04> Critical Care Time/MDM Note - Medical Decision Making Note: 10/13/17 18:22 Laboratory Tests 10/13/17 10/13/17 17:48 17:48 WBC 8.6 Hgb 13.5 Hct 39.9 Plt Count 203 PT with INR 10.9 INR 0.97 10/13/17 18:52 EKG: SR rate of 95 bpm, [place] nml, intervals nml, no st elevations or depressions Frequent PVCs 10/13/17 18:53 Laboratory Tests 10/13/17 10/13/17 10/13/17 17:48 17:48 17:48 Sodium 136 Potassium 3.4 L Chloride 105 Carbon Dioxide 25 BUN 39 H Creatinine 1.4 H Random Glucose 134 H Creatine Kinase 551 H Creatine Kinase Index 1.8 CK-MB (CK-2) 10.4 H Troponin I < 0.03 Urine Blood Urine Nitrite Ur Leukocyte Esterase 10/13/17 18:34 Sodium Potassium Chloride Carbon Dioxide BUN Creatinine Random Glucose Creatine Kinase Creatine Kinase Index CK-MB (CK-2) Troponin I Urine Blood Negative Urine Nitrite Negative Ur Leukocyte Esterase Negative CT head Would admit Pt has had a complete improvement in her symptoms Neuro consult (given h/o TIA) Pt signed out to Dr Grant <Zina Juarez - Last Filed: 10/14/17 09:04> Discharge Disposition <Letha Hernandez - Last Filed: 10/13/17 20:01> <Rizwan Cortez I - Last Filed: 10/13/17 23:11> - Discharge Dispostion Last Admission D/C Date: 04/25/17 <Zina Juarez - Last Filed: 10/14/17 09:04> - Diagnosis TIA (transient ischemic attack)
[2017-10-13 17:13] VITALS: BMI 34.0
[2017-10-13] MEDS ORDERED: SODIUM CHLORIDE 1,000 ML IV SCH (17:15)
[2017-10-13 18:14] LABS: BASO % 0.4 % (0-2.0); EOS % 2.6 % (0-4.5); HEMATOCRIT 39.9 % (32.4-45.2); HEMOGLOBIN 13.5 GM/dl (10.7-15.3); LYMPH % 18.9 % (8-40); MCHC 33.9 g/dl (32.0-36.0); MEAN CELL VOLUME 85.6 fl (80-96); MEAN PLT VOLUME 8.9 fl (7.5-11.1); MONO % 5.5 % (3.8-10.2); NEUT % 72.6 % (42.8-82.8); PLATELET COUNT 203 K/MM3 (134-434); RBC 4.67 M/mm3 (3.60-5.2); RDW 14.2 % (11.6-15.6); WHITE BLOOD COUNT 8.6 K/mm3 (4.0-10.8)
[2017-10-13 18:15] LABS: INR 0.97 (0.82-1.09); PROTHROMBIN TIME (PATIENT) 10.9 SEC (10.2-13.0)
[2017-10-13 18:24] LABS: ALBUMIN 3.6 g/dl (3.5-5.0); ALK PHOS 58 U/L (32-92); ANION GAP 6 (8-16); BILIRUBIN,TOTAL < 0.5 mg/dl (0.2-1.0); BLOOD UREA NITROGEN 39 mg/dl (7-18); CALCIUM 8.6 mg/dl (8.4-10.2); CHLORIDE 105 mmol/L (98-107); CHOLESTEROL 189 mg/dl; CO2 25 mmol/L (22-28); CREATININE 1.4 mg/dl (0.6-1.3); GLUCOSE,RANDOM 134 mg/dl (74-106); HDL CHOLESTEROL 51 mg/dl (29-89); POTASSIUM 3.4 mmol/L (3.5-5.1); SGOT/AST 22 U/L (10-42); SGPT/ALT 15 U/L (10-40); SODIUM 136 mmol/L (136-145); TOT PROT 6.7 g/dl (6.4-8.3); TRIGLYCERIDES 136 mg/dl (35-160)
[2017-10-13 18:41] LABS: URINE APPEARANCE Clear; URINE BILIRUBIN Negative (NEGATIVE); URINE BLOOD Negative (NEGATIVE); URINE COLOR YELLOW; URINE GLUCOSE (UA) Negative (NEGATIVE); URINE KETONE Negative (NEGATIVE); URINE LEUK ESTERASE Negative (NEGATIVE); URINE NITRITE Negative (NEGATIVE); URINE PROTEIN Negative (NEGATIVE); URINE UROBILINOGEN 0.2 (0.2-1.0)
--- NOTE | 2017-10-13 19:47 | PN ---
Teaching Attending Note ATTENDING PHYSICIAN STATEMENT I saw and evaluated the patient. I reviewed the resident's note and discussed the case with the resident. I agree with the resident's findings and plan as documented. SUBJECTIVE: OBJECTIVE: ASSESSMENT AND PLAN:
--- NOTE | 2017-10-13 22:57 | HP ---
CHIEF COMPLAINT: Left Facial Droop PCP: Dr. Paul Nix Oncologist: Dr. eJremy Post HISTORY OF PRESENT ILLNESS: This is a 67 y/o woman PMH Melanoma, Breast Ca chemo, R- mastectomy, TIA, HTN, COPD, Fatty Liver, Diverticulitis. Who presents to the ED with left sided facial droop x 1 day, noted by family member. Patient had recent procedure done on 10/11 by her [employer] Apprentice for Melanoma. Patient denies slurred speech, blurred vision, numbness. Patient denies fever, chills, cough, SOB, CP, palpitations, AP, N/V/D, constipation, dysuria. ER course was notable for: (1) Head CT- neg ICH, mass or lesion (2) BUN- 34, Cr 1.4 (3) K- 3.4 Recent Travel: None PAST MEDICAL HISTORY: See HPI PAST SURGICAL HISTORY: Colon Resection w colostomy Colostomy reversal AP Social History: Smoking: Never Alcohol: None Drugs: None Lives alone, Independent Family History: Allergies levofloxacin [From [email or web address]] Allergy (Verified 10/13/17 16:51) Itching tomato Adverse Reaction (Verified 10/13/17 16:51) HOME MEDICATIONS: Home Medications Medication Instructions Recorded Nebivolol HCl [Bystolic] 20 mg PO BID 10/12/15 Hydrochlorothiazide [Hctz -] 12.5 mg PO DAILY 01/01/16 Olmesartan Medoxomil [Benicar -] 40 mg PO DAILY 01/01/16 hydrALAZINE HCL [Apresoline -] 50 mg PO TID 02/02/17 Cholecalciferol (Vitamin D3) 1,000 unit PO DAILY 10/13/17 [Vitamin D3] REVIEW OF SYSTEMS CONSTITUTIONAL: Absent: fever, chills, diaphoresis, generalized weakness, malaise, loss of appetite, weight change HEENT: Absent: rhinorrhea, nasal congestion, throat pain, throat swelling, difficulty swallowing, mouth swelling, ear pain, eye pain, visual changes CARDIOVASCULAR: Absent: chest pain, syncope, palpitations, irregular heart rate, lightheadedness , peripheral edema RESPIRATORY: Absent: cough, shortness of breath, dyspnea with exertion, orthopnea, wheezing, stridor, hemoptysis GASTROINTESTINAL: Absent: abdominal pain, abdominal distension, nausea, vomiting, diarrhea, constipation, melena, hematochezia GENITOURINARY: Absent: dysuria, frequency, urgency, hesitancy, hematuria, flank pain, genital pain MUSCULOSKELETAL: Absent: myalgia, arthralgia, joint swelling, back pain, neck pain SKIN: Absent: rash, itching, pallor HEMATOLOGIC/IMMUNOLOGIC: Absent: easy bleeding, easy bruising, lymphadenopathy, frequent infections ENDOCRINE: Absent: unexplained weight gain, unexplained weight loss, heat intolerance, cold intolerance NEUROLOGIC: left facial droop Absent: headache, focal weakness or paresthesias, dizziness, unsteady gait, seizure, mental status changes, bladder or bowel incontinence PSYCHIATRIC: Absent: anxiety, depression, suicidal or homicidal ideation, hallucinations. PHYSICAL EXAMINATION Vital Signs - 24 hr 10/13/17 16:49 Temperature 98.5 F Pulse Rate 74 Respiratory 20 Rate Blood Pressure 138/63 O2 Sat by Pulse 98 Oximetry (%) GENERAL: Awake, alert, and fully oriented, in no acute distress. HEAD: Normal with no signs of trauma. EYES: Pupils equal, round and reactive to light, extraocular movements intact, sclera anicteric, conjunctiva clear. No lid lag. EARS, NOSE, THROAT: Ears normal, nares patent, oropharynx clear without exudates. Moist mucous membranes. NECK: Normal range of motion, supple without lymphadenopathy, JVD, or masses. LUNGS: Breath sounds equal, clear to auscultation bilaterally. No wheezes, and no crackles. No accessory muscle use. HEART: Regular rate and rhythm, normal S1 and S2 without murmur, rub or gallop. ABDOMEN: Soft, nontender, not distended, normoactive bowel sounds, no guarding, no rebound, no masses. No hepatomegaly or splenomegaly. MUSCULOSKELETAL: Normal range of motion at all joints. No bony deformities,No CVA tenderness. Right upper back tenderness. UPPER EXTREMITIES: 2+ pulses, warm, well-perfused. No cyanosis. No clubbing. No peripheral edema. LOWER EXTREMITIES: 2+ pulses, warm, well-perfused. No calf tenderness. No peripheral edema. NEUROLOGICAL: Cranial nerves II-XII intact. No facial droop, Normal speech. Gait not observed. PSYCHIATRIC: Cooperative. Good eye contact. Appropriate mood and affect. SKIN: Warm, dry, normal turgor, no rashes, normal capillary refill. 5x5x2.5 cm wound to right upper back, serosanguinous drainage to gauze noted Laboratory Results - last 24 hr 10/13/17 10/13/17 10/13/17 17:48 17:48 17:48 WBC 8.6 RBC 4.67 Hgb 13.5 Hct 39.9 MCV 85.6 MCH 29.0 MCHC 33.9 RDW 14.2 Plt Count 203 MPV 8.9 Absolute Neuts (auto) 6.3 Neutrophils % 72.6 Lymphocytes % 18.9 Monocytes % 5.5 Eosinophils % 2.6 Basophils % 0.4 PT with INR 10.9 INR 0.97 Sodium 136 Potassium 3.4 L Chloride 105 Carbon Dioxide 25 Anion Gap 6 L BUN 39 H Creatinine 1.4 H Creat Clearance w eGFR 37.51 Random Glucose 134 H Calcium 8.6 Total Bilirubin < 0.5 AST 22 ALT 15 Alkaline Phosphatase 58 Creatine Kinase Creatine Kinase Index CK-MB (CK-2) Troponin I Total Protein 6.7 Albumin 3.6 Triglycerides 136 Cholesterol 189 Total LDL Cholesterol 111 H HDL Cholesterol 51 Urine Color Urine Appearance Urine pH Ur Specific [place] Urine Protein Urine Glucose (UA) Urine Ketones Urine Blood Urine Nitrite Urine Bilirubin Urine Urobilinogen Ur Leukocyte Esterase Blood Type Antibody Screen 10/13/17 10/13/17 10/13/17 17:48 17:48 17:48 WBC RBC Hgb Hct MCV MCH MCHC RDW Plt Count MPV Absolute Neuts (auto) Neutrophils % Lymphocytes % Monocytes % Eosinophils % Basophils % PT with INR INR Sodium Potassium Chloride Carbon Dioxide Anion Gap BUN Creatinine Creat Clearance w eGFR Random Glucose Calcium Total Bilirubin AST ALT Alkaline Phosphatase Creatine Kinase 551 H Creatine Kinase Index 1.8 CK-MB (CK-2) 10.4 H Troponin I < 0.03 Total Protein Albumin Triglycerides Cholesterol Total LDL Cholesterol HDL Cholesterol Urine Color Urine Appearance Urine pH Ur Specific [place] Urine Protein Urine Glucose (UA) Urine Ketones Urine Blood Urine Nitrite Urine Bilirubin Urine Urobilinogen Ur Leukocyte Esterase Blood Type O POSITIVE Antibody Screen Negative 10/13/17 18:34 WBC RBC Hgb Hct MCV MCH MCHC RDW Plt Count MPV Absolute Neuts (auto) Neutrophils % Lymphocytes % Monocytes % Eosinophils % Basophils % PT with INR INR Sodium Potassium Chloride Carbon Dioxide Anion Gap BUN Creatinine Creat Clearance w eGFR Random Glucose Calcium Total Bilirubin AST ALT Alkaline Phosphatase Creatine Kinase Creatine Kinase Index CK-MB (CK-2) Troponin I Total Protein Albumin Triglycerides Cholesterol Total LDL Cholesterol HDL Cholesterol Urine Color Yellow Urine Appearance Clear Urine pH 5.0 Ur Specific [place] 1.015 Urine Protein Negative Urine Glucose (UA) Negative Urine Ketones Negative Urine Blood Negative Urine Nitrite Negative Urine Bilirubin Negative Urine Urobilinogen 0.2 Ur Leukocyte Esterase Negative Blood Type Antibody Screen ASSESSMENT/PLAN: This is a 67 y/o woman PMH Melanoma, Breast Ca s/p Chemo, RT- Mastectomy, TIA, HTN, COPD, Fatty Liver, Diverticulitis. Placed on Tele Observation for TIA. Plan: 1. TIA - NIHSS 0 - Cardiac monitoring - CT Head- neg ICH - Appreciate Neurology consult - Carotid Doppler - Swallow Eval - Elevate HOB - NPO - Echo - Repeat CBC, BMP, HgBA1c in am - Asa, Lipitor 2. Cardiac Arrhythmia - Continue gambling monitor - EKG- NSR with PVCs, new compared to prior study - Appreciate Cardiology consult - Serial Enzymes neg x1, will trend x2 3. Melanoma - s/p excision - Dressing changes - FU with Derm/Oncology as indicated 4. Hypertension - stable - Continue Benicar, Bystolic with parameters - Will hold Hydralazine, HCTZ secondary to ENDY - Monitor renal function - Monitor BP 5. COPD - stable - Continue home meds - Duonebs prn - Spo2 check 6. Fatty Liver - Monitor LFTs 7. Breast Ca - s/p Chemo, RT- mastectomy - FU with oncology outpatient as indicated FEN - NS@42ml/hr - Repleted K in ED, monitor - NPO DVT ppx - OOB - SCDs - Consider ACs if LOS> 48hrs Code Status: Full Code Dispo: Tele Observation Problem List - Problem (1) TIA (transient ischemic attack) Code(s): G45.9 - TRANSIENT CEREBRAL ISCHEMIC ATTACK, UNSPECIFIED (2) ENDY (acute kidney injury) Code(s): N17.9 - ACUTE KIDNEY FAILURE, UNSPECIFIED (3) Hypokalemia Code(s): E87.6 - HYPOKALEMIA (4) Hypertension Code(s): I10 - ESSENTIAL (PRIMARY) HYPERTENSION (5) COPD (chronic obstructive pulmonary disease) Code(s): J44.9 - CHRONIC OBSTRUCTIVE PULMONARY DISEASE, UNSPECIFIED Visit type - Emergency Visit Emergency Visit: Yes ED Registration Date: 10/13/17 Care time: The patient presented to the Emergency Department on the above date and was hospitalized for further evaluation of their emergent condition. - New Patient This patient is new to me today: Yes Date on this admission: 10/13/17 - Critical Care Critical Care patient: No Hospitalist Screening - Colonoscopy Questionnaire Colonoscopy Questionnaire: Colonoscopy Questionnaire - Patient: 50 - 75 years old and never had a screening colonoscopy: No History of colon or rectal polyps, or CA: Yes History of IBD, Crohn's disease or UC: No History of abdominal radiation therapy as a child: No - Relative: 1 with colon or rectal CA, or polyps at age 60 or younger: Unknown Colon or rectal CA diagnosed at age 45 or younger: Unknown Multiple relatives with colon or rectal CA: Unknown - Outcome: Screening Result: Positive Screen
[2017-10-13] MEDS: NEBIVOLOL 10 MG TABLET (FP) PO SCH (23:46)
[2017-10-14 08:42] LABS: BASO % 0.4 % (0-2.0); EOS % 4.1 % (0-4.5); HEMATOCRIT 41.2 % (32.4-45.2); HEMOGLOBIN 13.4 GM/dl (10.7-15.3); LYMPH % 18.7 % (8-40); MCHC 32.5 g/dl (32.0-36.0); MEAN CELL VOLUME 86.4 fl (80-96); MEAN PLT VOLUME 8.2 fl (7.5-11.1); MONO % 9.4 % (3.8-10.2); NEUT % 67.4 % (42.8-82.8); PLATELET COUNT 215 K/MM3 (134-434); RBC 4.76 M/mm3 (3.60-5.2); RDW 14.3 % (11.6-15.6); WHITE BLOOD COUNT 6.4 K/mm3 (4.0-10.8)
[2017-10-14 08:47] LABS: ANION GAP 8 (8-16); BLOOD UREA NITROGEN 27 mg/dl (7-18); CALCIUM 8.9 mg/dl (8.4-10.2); CHLORIDE 106 mmol/L (98-107); CO2 25 mmol/L (22-28); GLUCOSE,RANDOM 100 mg/dl (74-106); MAGNESIUM 1.9 mg/dL (1.8-2.4); POTASSIUM 3.8 mmol/L (3.5-5.1); SODIUM 139 mmol/L (136-145)
[2017-10-14] MEDS: NEBIVOLOL 10 MG TABLET (FP) PO SCH ×2 (10:12→21:27)
[2017-10-14] MEDS: VALSARTAN 160 MG TABLET (UD) PO SCH (10:12)
[2017-10-14] MEDS: ASPIRIN 81 MG CHEWABLE TABLETS PO SCH (10:12)
--- NOTE | 2017-10-14 11:56 | CON.NEURO ---
Consult - Past Medical History Cardio/Vascular: Yes: HTN Pulmonary: Yes: Pulmonary Fibrosis (radiation) Renal/: Yes: Renal Calculi, Other (=) ...: No - Past Surgical History Past Surgical History: Yes: Hysterectomy, Mastectomy, Appendectomy - Alcohol/Substance Use Hx Alcohol Use: No History of Substance Use: reports: None - Smoking History Smoking history: Never smoked Have you smoked in the past 12 months: No Aproximately how many cigarettes per day: 0 - Social History ADL: Independent History of Recent Travel: No Home Medications - Allergies Allergies/Adverse Reactions: Allergies Allergy/AdvReac Type Severity Reaction Status Date / Time levofloxacin [From Levaquin] Allergy Itching Verified 10/13/17 16:51 tomato AdvReac Verified 10/13/17 16:51 - Home Medications Home Medications: Ambulatory Orders Nebivolol HCl [Bystolic] 20 mg PO BID 10/12/15 Hydrochlorothiazide [Hctz -] 12.5 mg PO DAILY 01/01/16 Olmesartan Medoxomil [Benicar -] 40 mg PO DAILY 01/01/16 hydrALAZINE HCL [Apresoline -] 50 mg PO TID 02/02/17 Cholecalciferol (Vitamin D3) [Vitamin D3] 1,000 unit PO DAILY 10/13/17 Family Disease History - Family Disease History Family Disease History: Heart Disease: Sister (pacemaker), CA: Mother (colon) Physical Exam-Neuro Vital Signs: Vital Signs Temperature 97.6 F 10/14/17 10:08 Pulse Rate 60 10/14/17 10:08 Respiratory Rate 18 10/14/17 10:08 Blood Pressure 197/71 10/14/17 10:08 O2 Sat by Pulse Oximetry (%) 95 10/14/17 06:52 Labs: CBC, BMP 10/14/17 07:40 10/14/17 07:40 INR, PTT INR 0.97 (0.82-1.09) 10/13/17 17:48 Assessment/Plan cc Left facial droopiness x one hour HPI 67 year old female history of Melanoma s/p resection, Breast Ca s/p in remission for 7 years. She also ahve history of TIA ( 20 YEARS AGO) , not taking aspirin. She has HTN, COPD, Fatty liver and diverticulitis. She has symptom of left face droopiness lasting less than one hour. She denies history of dm, she takes lipitor ? 40 mg once a day at home. Patient geovanny has right shoulder surgery done at [facility]. PMH as above SxH Colon resection, shoulder surgery SH,ROS,FH reviewed in chart Allergies levofloxacin [From Levaquin] Allergy (Verified 10/13/17 16:51) Itching tomato Adverse Reaction (Verified 10/13/17 16:51) HOME MEDICATIONS: Home Medications Medication Instructions Recorded Nebivolol HCl [Bystolic] 20 mg PO BID 10/12/15 Hydrochlorothiazide [Hctz -] 12.5 mg PO DAILY 01/01/16 Olmesartan Medoxomil [Benicar -] 40 mg PO DAILY 01/01/16 hydrALAZINE HCL [Apresoline -] 50 mg PO TID 02/02/17 Cholecalciferol (Vitamin D3) 1,000 unit PO DAILY 10/13/17 [Vitamin D3] Neurological Examination Alert oriented x 3 speech is normal no face asymmetry, eomi, pupils reactive 5/5 all ext sensation is normal reflex are generalized diminished ct head is unremarkable Assessment- Left face droopiness, symptoms resolved. Suspect TIA, Risk facor include HTN Previous history of TIA, NOW nih score is 0 and swallowing is fine Plan-- increase lipitor to 40 mg once a day, continue aspirin -mri of brain carotid ultrasound - life style modification and stroke education - given symptoms resolved, no need for speech or pt - dvt prophylaxis - Once work up is negative , she can be discharged on aspirin and statin and follow up with me Thanking you so much Ramiro Quick MD
--- NOTE | 2017-10-14 13:34 | PN ---
Progress Note (short form) - Note Progress Note: Subjective: The patient was seen and examined at the bedside, she has no complaints at this time. Her symptoms have resolved Current Medications Generic Name Dose Route Start Last Admin Trade Name Gene PRN Reason Stop Dose Admin Aspirin 81 mg 10/14/17 10:00 10/14/17 10:12 Asa - PO 81 mg DAILY MELISA Administration Atorvastatin Calcium 40 mg 10/14/17 22:00 Lipitor - PO HS MELISA Hydralazine HCl 50 mg 10/14/17 14:00 Apresoline - PO TID MELISA Hydrochlorothiazide 12.5 mg 10/15/17 10:00 Hctz - PO DAILY MELISA Sodium Chloride 1,000 mls @ 42 mls/hr 10/13/17 17:15 10/13/17 17:52 Normal Saline - IV 42 mls/hr ASDIR MELISA Administration Nebivolol 20 mg 10/13/17 22:00 10/14/17 10:12 Bystolic - PO 20 mg BID MELISA Administration Valsartan 320 mg 10/14/17 10:00 10/14/17 10:12 Diovan - PO 320 mg DAILY MELISA Administration Objective: Vital Signs Period Temp Pulse Resp BP Sys/Heard Pulse Ox Last 24 Hr 97.6 F-98.5 F 60-74 18-20 138-197/47-71 95-98 Physical Exam: Patient was going off for testing, will perform upon her return CBCD WBC 6.4 K/mm3 (4.0-10.8) 10/14/17 07:40 RBC 4.76 M/mm3 (3.60-5.2) 10/14/17 07:40 Hgb 13.4 GM/dl (10.7-15.3) 10/14/17 07:40 Hct 41.2 % (32.4-45.2) 10/14/17 07:40 MCV 86.4 fl (80-96) 10/14/17 07:40 MCHC 32.5 g/dl (32.0-36.0) 10/14/17 07:40 RDW 14.3 % (11.6-15.6) 10/14/17 07:40 Plt Count 215 K/MM3 (134-434) 10/14/17 07:40 MPV 8.2 fl (7.5-11.1) 10/14/17 07:40 CMP Sodium 139 mmol/L (136-145) 10/14/17 07:40 Potassium 3.8 mmol/L (3.5-5.1) 10/14/17 07:40 Chloride 106 mmol/L (98-107) 10/14/17 07:40 Carbon Dioxide 25 mmol/L (22-28) 10/14/17 07:40 Anion Gap 8 (8-16) 10/14/17 07:40 BUN 27 mg/dl (7-18) H D 10/14/17 07:40 Creatinine 1.0 mg/dl (0.6-1.3) D 10/14/17 07:40 Creat Clearance w eGFR 37.51 (>60) 10/13/17 17:48 Random Glucose 100 mg/dl (74-106) D 10/14/17 07:40 Calcium 8.9 mg/dl (8.4-10.2) 10/14/17 07:40 Total Bilirubin < 0.5 mg/dl (0.2-1.0) 10/13/17 17:48 AST 22 U/L (10-42) 10/13/17 17:48 ALT 15 U/L (10-40) 10/13/17 17:48 Alkaline Phosphatase 58 U/L (32-92) 10/13/17 17:48 Total Protein 6.7 g/dl (6.4-8.3) 10/13/17 17:48 Albumin 3.6 g/dl (3.5-5.0) 10/13/17 17:48 CARDIAC ENZYMES Creatine Kinase 551 IU/L (26-192) H 10/13/17 17:48 Troponin I < 0.03 ng/ml (0.00-0.06) 10/14/17 07:40 Assessment: This is a 67 year old female with PMHx of breast cancer s/p chemo, right mastectomy, recent diagnosis of melanoma, TIA, HTN, COPD, fatty liver disease, diverticulitis, who presented to the ED with a left sided facial droop. Plan: 1) TIA - Head CT reviewed - F/u brain MRI - F/u caroitid dopplers - Patient swallowing ok, will order diet - Increased Lipitor to 40mg po hs - Continue ASA - Appreciate neurology consult 2) Melanoma - Recently diagnosed - S/p excision on right shoulder - F/u derm/oncology as outpatient 3) HTN - BP elevated - Restart Hctz - Restart Hydralazine - Continue Bystolic - Continue Diovan 4) COPD - No evidence of acute exacerbation 5) Breast Ca - s/p Chemo, RT- mastectomy - FU with oncology outpatient as indicated 6) F/E/N: - Sodium controlled diet - Monitor electrolytes 7) Prophylaxis: - SCDs bilaterally - Heparin 5,000u sq tid 8) Dispo: - Once condition improves CODE STATUS: FULL CODE Visit type - Emergency Visit Emergency Visit: Yes ED Registration Date: 10/13/17 Care time: The patient presented to the Emergency Department on the above date and was hospitalized for further evaluation of their emergent condition. - New Patient This patient is new to me today: Yes Date on this admission: 10/14/17 - Critical Care Critical Care patient: No
[2017-10-14] MEDS: hydrALAZINE HCL 25 MG TABLET (FP) PO SCH ×2 (14:00→21:28)
[2017-10-14] MEDS: HEPARIN NA (PORCINE) 5,000 UNITS/ML 1ML VIAL SQ SCH ×2 (14:00→21:28)
--- NOTE | 2017-10-14 14:46 | EKG ---
Test Reason : Blood Pressure : / mmHG Vent. Rate : 095 BPM Atrial Rate : 074 BPM P-R Int : 192 ms QRS Dur : 092 ms QT Int : 386 ms P-R-T Axes : 044 -19 016 degrees QTc Int : 485 ms SINUS RHYTHM WITH FREQUENT and consecutive PREMATURE VENTRICULAR COMPLEXES MINIMAL VOLTAGE CRITERIA FOR LVH, MAY BE NORMAL VARIANT ABNORMAL ECG WHEN COMPARED WITH ECG OF 18-APR-2017 09:25, PREMATURE VENTRICULAR COMPLEXES ARE NOW PRESENT VENT. RATE HAS INCREASED BY 42 BPM QT HAS LENGTHENED Confirmed by MD Hitchcock Daniel ([id number]) on 10/14/2017 2:46:28 PM Referred By: MD COTE Confirmed By:Faheem Hitchcock MD
--- NOTE | 2017-10-14 15:12 | CON.CARD ---
Consult Consult Specialty:: Cardiology Referred by:: Hospitalist Medicine Reason for Consultation:: Left facial droop - History of Present Illness Chief Complaint: Left facial droop History of Present Illness: cc: Left Facial Droop PCP: Dr. Paul Nix Oncologist: Dr. Jeremy Post HISTORY OF PRESENT ILLNESS: This is a 67 y/o woman PMH Melanoma, Breast Ca chemo, R- mastectomy, TIA (20 years ago), HTN, COPD, Fatty Liver, Diverticulitis presented to the ED with left sided facial droop for less than hour, noted by family member since resolved. Patient denies slurred speech, blurred vision, numbness, erakness. Patient denies fever, chills, cough, SOB, CP, palpitations, near or true syncope , N/V/D, constipation, dysuria. ECG shows PVC, no PAF. - History Source History Provided By: Patient Limitations to Obtaining History: No Limitations - Past Medical History Cardio/Vascular: Yes: HTN Pulmonary: Yes: Pulmonary Fibrosis (radiation) Renal/: Yes: Renal Calculi, Other (=) ...: No - Past Surgical History Past Surgical History: Yes: Hysterectomy, Mastectomy, Appendectomy - Alcohol/Substance Use Hx Alcohol Use: No History of Substance Use: reports: None - Smoking History Smoking history: Never smoked Have you smoked in the past 12 months: No Aproximately how many cigarettes per day: 0 - Social History ADL: Independent History of Recent Travel: No Home Medications - Allergies Allergies/Adverse Reactions: Allergies Allergy/AdvReac Type Severity Reaction Status Date / Time levofloxacin [From Levaquin] Allergy Itching Verified 10/13/17 16:51 tomato AdvReac Verified 10/13/17 16:51 - Home Medications Home Medications: Ambulatory Orders Nebivolol HCl [Bystolic] 20 mg PO BID 10/12/15 Hydrochlorothiazide [Hctz -] 12.5 mg PO DAILY 01/01/16 Olmesartan Medoxomil [Benicar -] 40 mg PO DAILY 01/01/16 hydrALAZINE HCL [Apresoline -] 50 mg PO TID 02/02/17 Cholecalciferol (Vitamin D3) [Vitamin D3] 1,000 unit PO DAILY 10/13/17 Family Disease History - Family Disease History Family Disease History: Heart Disease: Sister (pacemaker), CA: Mother (colon) Review of Systems - Review of Systems Neurological: reports: Other (Left facial droop) Vital Signs: Vital Signs Temperature 98.4 F 10/14/17 14:00 Pulse Rate 58 L 10/14/17 14:00 Respiratory Rate 18 10/14/17 14:00 Blood Pressure 162/64 10/14/17 14:00 O2 Sat by Pulse Oximetry (%) 97 10/14/17 14:00 Constitutional: Yes: No Distress, Calm Neck: Yes: Supple Respiratory: Yes: Regular, CTA Bilaterally Gastrointestinal: Yes: Normal Bowel Sounds, Soft Cardiovascular: Yes: Regular Rate and Rhythm, Other (with ectopic beats) JVD: No Carotid Bruit: No Heart Sounds: Yes: S1, S2 Edema: No - Other Data Labs, Other Data: CBC, BMP 10/14/17 07:40 10/14/17 07:40 INR, PTT INR 0.97 (0.82-1.09) 10/13/17 17:48 Troponin, BNP 10/13/17 10/14/17 10/14/17 17:48 00:30 00:30 Troponin I < 0.03 Cancelled < 0.02 10/14/17 07:40 Troponin I < 0.03 Troponin, BNP 10/13/17 10/14/17 10/14/17 17:48 00:30 00:30 Troponin I < 0.03 Cancelled < 0.02 10/14/17 07:40 Troponin I < 0.03 NSR frequent PVC Ejection Fraction %: LVEF > or = 40 % Imaging - Results Chest X-ray: Report Reviewed (NAD) Cat Scan: Report Reviewed (No acute changes) Ultrasound: Report Reviewed (No sig carotid stenosis) MRI: Pending Problem List - Problems (1) Hyperlipidemia Code(s): E78.5 - HYPERLIPIDEMIA, UNSPECIFIED Qualifiers: Hyperlipidemia type: pure hypercholesterolemia Qualified Code(s): E78.00 - Pure hypercholesterolemia, unspecified; E78.0 - Pure hypercholesterolemia (2) TIA (transient ischemic attack) Code(s): G45.9 - TRANSIENT CEREBRAL ISCHEMIC ATTACK, UNSPECIFIED Qualifiers: Transient cerebral ischemia type: unspecified Qualified Code(s): G45.9 - Transient cerebral ischemic attack, unspecified (3) Hypertension Code(s): I10 - ESSENTIAL (PRIMARY) HYPERTENSION Qualifiers: Hypertension type: essential hypertension Qualified Code(s): I10 - Essential (primary) hypertension Assessment/Plan 1. Left facial droop resolved. TIA suspected with previous h/o same 2. HTN/HCVD 3. Frequent PVC 4. Hyperlipidemia 5. Melanoma planned for resection 6. Breast ca s/p right mastectomy and chemotherapy P:1. F/u brain MRI 2. Agree with ASA 81 qd, Lipitor 40 qd, DIovan-HCT 320-12.5 qd, Bystolic 20 bid , Hydralazine 50 tid 3. Echocardiogram and extended arrhythmia monitor as outpatient to exclude PAF and assess arrhythmia burden 4. Thank you for consultative opportunity
[2017-10-14] MEDS ORDERED: ATORVASTATIN CA 40 MG TABLET (FP) PO SCH (22:00)
[2017-10-14] MEDS ORDERED: ATORVASTATIN CA 20 MG TABLET (FP) PO SCH (22:00)
[2017-10-15 06:46] VITALS: BP 128/58; PULSE 55; TEMP 98.3
[2017-10-15] MEDS: hydrALAZINE HCL 25 MG TABLET (FP) PO SCH (06:53)
[2017-10-15] MEDS: HEPARIN NA (PORCINE) 5,000 UNITS/ML 1ML VIAL SQ SCH (06:53)
--- NOTE | 2017-10-15 08:02 | DS ---
Physical Examination Vital Signs: Vital Signs Temperature 98.3 F 10/15/17 06:00 Pulse Rate 55 L 10/15/17 06:00 Respiratory Rate 18 10/15/17 06:00 Blood Pressure 128/58 10/15/17 06:00 O2 Sat by Pulse Oximetry (%) 95 10/15/17 06:00 Labs: CBC, BMP 10/14/17 07:40 10/14/17 07:40 Discharge Summary Reason For Visit: TIA Current Active Problems COPD (chronic obstructive pulmonary disease) (Acute) Hyperlipidemia (Acute) TIA (transient ischemic attack) (Acute) Hospital Course: The patient is having a surgery tomorrow for reconstruction after melanoma removal. Condition: Improved - Instructions Diet, Activity, Other Instructions: Please return to the ED with new, persistent, or worsening symptoms. Please follow-up with all providers as indicated. Referrals: Reginaldo Alvarado MD [Staff Physician] - (Please call Dr. Alvarado's office (cardiology ) tomorrow to schedule an appointment within the next 2-3 days for an echocardiogram and extended arrhythmia monitoring. ) Ramiro Quick MD [Staff Physician] - 1 Week Paul Nix MD [Staff Physician] - 1 Week Disposition: HOME - Home Medications Comprehensive Discharge Medication List: Ambulatory Orders Nebivolol HCl [Bystolic] 20 mg PO BID 10/12/15 Hydrochlorothiazide [Hctz -] 12.5 mg PO DAILY 01/01/16 hydrALAZINE HCL [Apresoline -] 50 mg PO TID 02/02/17 Cholecalciferol (Vitamin D3) [Vitamin D3] 1,000 unit PO DAILY 10/13/17 Aspirin [ASA -] 81 mg PO DAILY #30 tab.chew 10/15/17 Atorvastatin Ca [Lipitor] 40 mg PO HS #30 tablet 10/15/17 Valsartan/Hydrochlorothiazide [Diovan Hct 320-12.5 mg Tab] 1 each PO DAILY #30 tablet 10/15/17
[2017-10-15] MEDS: VALSARTAN 160 MG TABLET (UD) PO SCH (09:14)
[2017-10-15] MEDS: ASPIRIN 81 MG CHEWABLE TABLETS PO SCH (09:14)
[2017-10-15] MEDS: NEBIVOLOL 10 MG TABLET (FP) PO SCH (09:17)
[2017-10-15] MEDS ORDERED: HYDROCHLOROTHIAZIDE 25 MG TABLET (FP) PO SCH (10:00)
== END 2017-10-15 11:00 | disposition home or self-care (01) ==
LOC: FER 16:48 → FM/S 21:43
PROVIDERS: ADMIT Internal Medicine; ATTEND Registered Nurse
PROC: 3E0337Z Introduction of Electrolytic and Water Balance Substance into Peripheral Vein, Percutaneous Approach (ICD-10-PCS; principal; 2017-10-13)
PROC: 3E013GC Introduction of Other Therapeutic Substance into Subcutaneous Tissue, Percutaneous Approach (ICD-10-PCS; 2017-10-13)
DX: G45.9 Transient cerebral ischemic attack, unspecified (principal); I49.9 Cardiac arrhythmia, unspecified; I10 Essential (primary) hypertension; J44.9 Chronic obstructive pulmonary disease, unspecified; E78.5 Hyperlipidemia, unspecified; K76.0 Fatty (change of) liver, not elsewhere classified; Z85.820 Personal history of malignant melanoma of skin; Z85.3 Personal history of malignant neoplasm of breast; Z93.3 Colostomy status; Z87.442 Personal history of urinary calculi; Z90.710 Acquired absence of both cervix and uterus; Z90.11 Acquired absence of right breast and nipple; Z92.21 Personal history of antineoplastic chemotherapy; Z86.73 Personal history of transient ischemic attack (TIA), and cerebral infarction without residual deficits; Z88.1 Allergy status to other antibiotic agents
CPT/HCPCS: 36415; 70450-TC; 70551-TC; 71045-TC-FY; 80048; 80053; 81003; 82465; 82550; 82553; 83036; 83718; 83721; 83735; 84100; 84443; 84478; 84484; 85025; 85610; 86850; 86900; 86901; 93005; 93880-TC; 96372; 99284-25; G0378; J1644; J7030

== ENCOUNTER 2018-12-16 16:04 | Emergency (ER) | payer OTHER | END 2018-12-16 17:59 | disposition home or self-care (01) | LOC: FER 16:04 ==

== ENCOUNTER 2020-04-10 19:08 | Inpatient (IN) | payer OTHER ==
[2020-04-10 19:27] VITALS: BMI 36.2
[2020-04-10] MEDS ORDERED: dilTIAZem HCL 50 MG/10 ML - 10 ML VIAL ONE (19:51)
[2020-04-10] MEDS ORDERED: dilTIAZem HCL 50 MG/10 ML - 10 ML VIAL IVPUSH ONE ×2 (19:51→20:09)
[2020-04-10 19:52] LABS: HEMATOCRIT 45.9 % (32.4-45.2); HEMOGLOBIN 15.3 GM/dl (10.7-15.3); MCH 29.9 pg (25.7-33.7); MCHC 33.3 g/dl (32.0-36.0); MEAN CELL VOLUME 89.8 fl (80-96); MEAN PLT VOLUME 8.4 fl (7.5-11.1); PLATELET COUNT 305 K/MM3 (134-434); RBC 5.11 M/mm3 (3.60-5.2); RDW 14.3 % (11.6-15.6)
[2020-04-10 20:09] LABS: ACTIVATED PTT 25.4 SECONDS (25.2-36.5)
[2020-04-10 20:13] LABS: INR 1.4 (0.82-1.09); PROTHROMBIN TIME (PATIENT) 15.3 SEC (10.2-13.0)
[2020-04-10 20:14] LABS: ALBUMIN 3.6 g/dl (3.4-5.0); BILIRUBIN,TOTAL 0.6 mg/dl (0.2-1); CREATININE 1.1 mg/dl (0.55-1.3); POTASSIUM 3.6 mmol/L (3.5-5.1); TOT PROT 6.7 g/dl (6.4-8.2)
[2020-04-10] MEDS ORDERED: dilTIAZem HCL 30 MG TABLET PO ONE (20:23)
[2020-04-10] MEDS ORDERED: dilTIAZem HCL 30 MG TABLET ONE (20:24)
[2020-04-10 20:55] LABS: PLATELET ESTIMATE ADEQUATE
[2020-04-10] MEDS ORDERED: METOPROLOL TARTRATE 5 MG/5 ML VIAL IVPUSH ONE (21:06)
[2020-04-10] MEDS ORDERED: METOPROLOL TARTRATE 5 MG/5 ML VIAL ONE (21:16)
[2020-04-10 21:40] LABS: N-TERMINAL BNP 6940.4 pg/ml (5-125)
[2020-04-10 21:48] LABS: EPITHELIAL CELLS MODERATE /hpf
[2020-04-10] MEDS ORDERED: guaiFENesin/CODEINE 10 ML UNIT-DOSE CUPS PO ONE (21:52)
[2020-04-10] MEDS ORDERED: guaiFENesin/CODEINE 10 ML UNIT-DOSE CUPS ONE (21:57)
[2020-04-11] MEDS ORDERED: ENOXAPARIN NA (PORCINE) 80 MG/0.8 ML DISP.SYRIN SQ ONE (01:08)
[2020-04-11] MEDS ORDERED: ENOXAPARIN NA (PORCINE) 100 MG/1 ML DISP.SYRIN SQ ONE (01:25)
[2020-04-11] MEDS: DILTIAZEM INJECTION 125 MG in SODIUM CHLORIDE 100 ML IVPB SCH ×2 (04:21→17:53)
[2020-04-11 08:11] LABS: BASO % 0.5 % (0-2.0); EOS % 0.4 % (0-4.5); HEMATOCRIT 44.3 % (32.4-45.2); HEMOGLOBIN 14.5 GM/dL (10.7-15.3); LYMPH % 8.1 % (8-40); MCH 29.7 pg (25.7-33.7); MCHC 32.8 g/dl (32.0-36.0); MEAN CELL VOLUME 90.7 fl (80-96); MEAN PLT VOLUME 9.2 fl (7.5-11.1); PLATELET COUNT 236 K/MM3 (134-434); RBC 4.89 M/mm3 (3.60-5.2); RDW 15.1 % (11.6-15.6); WHITE BLOOD COUNT 10.6 K/mm3 (4.0-10.0)
[2020-04-11] MEDS ORDERED: CEFTRIAXONE 1 GM in DEXTROSE 5%-WATER - 50 ML IVPB ONE (08:30)
[2020-04-11] MEDS ORDERED: FUROSEMIDE 40 MG/4 ML INJECTABLE VIAL IVPUSH ONE (08:32)
[2020-04-11] MEDS ORDERED: DEXTROSE 5%-WATER - 50 ML IVPB ONE (09:30)
[2020-04-11] MEDS ORDERED: cefTRIAXone SODIUM 1 GM VIAL ONE (09:30)
[2020-04-11] MEDS: dilTIAZem HCL 30 MG TABLET PO SCH ×3 (10:35→23:57)
[2020-04-11 11:16] LABS: MAGNESIUM 2.1 mg/dL (1.8-2.4)
[2020-04-11] MEDS ORDERED: ENOXAPARIN NA (PORCINE) 100 MG/1 ML DISP.SYRIN SQ SCH (13:00)
[2020-04-11] MEDS: BENZOCAINE/MENTH/CETYLPYRD CL 1 EACH LOZENGE MM PRN (17:26)
[2020-04-11] MEDS: guaiFENesin/CODEINE 5 ML UNIT-DOSE CUPS PO PRN ×2 (17:27→23:57)
[2020-04-11] MEDS: APIXABAN 5 MG TABLET PO SCH (21:01)
[2020-04-12] MEDS: dilTIAZem HCL 30 MG TABLET PO SCH (05:56)
[2020-04-12] MEDS: DILTIAZEM INJECTION 125 MG in SODIUM CHLORIDE 100 ML IVPB SCH (05:57)
[2020-04-12] MEDS ORDERED: DEXTROSE 5%-WATER - 50 ML IVPB ONE (09:27)
[2020-04-12] MEDS ORDERED: cefTRIAXone SODIUM 1 GM VIAL ONE (09:27)
[2020-04-12] MEDS: FUROSEMIDE 40 MG/4 ML INJECTABLE VIAL IVPUSH SCH (09:48)
[2020-04-12] MEDS: CEFTRIAXONE 1 GM in DEXTROSE 5%-WATER - 50 ML IVPB SCH (09:48)
[2020-04-12] MEDS: APIXABAN 5 MG TABLET PO SCH ×2 (09:49→21:43)
[2020-04-12] MEDS: BENZOCAINE/MENTH/CETYLPYRD CL 1 EACH LOZENGE MM PRN ×2 (10:01→21:43)
[2020-04-12] MEDS: guaiFENesin/CODEINE 5 ML UNIT-DOSE CUPS PO PRN ×2 (10:01→21:43)
[2020-04-13 08:00] LABS: BASO % 0.4 % (0-2.0); EOS % 1.6 % (0-4.5); HEMATOCRIT 44.7 % (32.4-45.2); HEMOGLOBIN 14.3 GM/dL (10.7-15.3); LYMPH % 8.6 % (8-40); MCH 28.7 pg (25.7-33.7); MCHC 32.1 g/dl (32.0-36.0); MEAN CELL VOLUME 89.6 fl (80-96); MEAN PLT VOLUME 8.3 fl (7.5-11.1); MONO % 7.4 % (3.8-10.2); PLATELET COUNT 241 K/MM3 (134-434); RBC 4.98 M/mm3 (3.60-5.2); RDW 14.6 % (11.6-15.6); WHITE BLOOD COUNT 11.4 K/mm3 (4.0-10.0)
[2020-04-13 08:11] LABS: POTASSIUM 3.4 mmol/L (3.5-5.1)
[2020-04-13 08:19] LABS: CALCIUM 8.7 mg/dL (8.5-10.1)
[2020-04-13 08:21] LABS: ALBUMIN 2.8 g/dl (3.4-5.0); MAGNESIUM 2.3 mg/dL (1.8-2.4)
[2020-04-13 08:23] LABS: PHOSPHOROUS 3.2 mg/dL (2.5-4.9)
[2020-04-13 08:24] LABS: BILIRUBIN,TOTAL 0.7 mg/dL (0.2-1); TOT PROT 6.3 g/dl (6.4-8.2)
[2020-04-13] MEDS ORDERED: cefTRIAXone SODIUM 1 GM VIAL ONE (09:00)
[2020-04-13] MEDS ORDERED: DEXTROSE 5%-WATER - 50 ML IVPB ONE (09:00)
[2020-04-13] MEDS ORDERED: POTASSIUM CHLORIDE TABS 20 MEQ TABLET.ER (FP) PO ONE (09:04)
[2020-04-13] MEDS: CEFTRIAXONE 1 GM in DEXTROSE 5%-WATER - 50 ML IVPB SCH (09:19)
[2020-04-13] MEDS: APIXABAN 5 MG TABLET PO SCH ×2 (09:19→21:10)
[2020-04-13] MEDS: FUROSEMIDE 40 MG/4 ML INJECTABLE VIAL IVPUSH SCH (09:19)
[2020-04-13] MEDS: guaiFENesin/CODEINE 5 ML UNIT-DOSE CUPS PO PRN ×2 (12:15→20:43)
[2020-04-13] MEDS ORDERED: SENNOSIDES 8.6MG TABLET (FP) PO PRN (13:06)
[2020-04-13] MEDS ORDERED: DOCUSATE SODIUM 100 MG CAPSULE (FP) PO PRN (13:06)
[2020-04-13] MEDS ORDERED: POLYETHYLENE GLYCOL 3350 119 GM BTL PO PRN (13:06)
[2020-04-13] MEDS: BENZOCAINE/MENTH/CETYLPYRD CL 1 EACH LOZENGE MM PRN (20:43)
[2020-04-14 06:51] LABS: POTASSIUM 3.9 mmol/L (3.5-5.1)
[2020-04-14 06:53] LABS: BLOOD UREA NITROGEN 25.8 mg/dL (7-18); CALCIUM 8.3 mg/dL (8.5-10.1)
[2020-04-14 06:57] LABS: CREATININE 0.8 mg/dL (0.55-1.3)
[2020-04-14 07:06] LABS: HEMATOCRIT 47.7 % (32.4-45.2); HEMOGLOBIN 15.2 GM/dL (10.7-15.3); MCHC 31.8 g/dl (32.0-36.0); MEAN CELL VOLUME 91.1 fl (80-96); MEAN PLT VOLUME 8.6 fl (7.5-11.1); PLATELET COUNT 260 K/MM3 (134-434); RBC 5.23 M/mm3 (3.60-5.2); RDW 15.5 % (11.6-15.6); WHITE BLOOD COUNT 11.9 K/mm3 (4.0-10.0)
[2020-04-14] MEDS ORDERED: cefTRIAXone SODIUM 1 GM VIAL ONE (09:27)
[2020-04-14] MEDS ORDERED: DEXTROSE 5%-WATER - 50 ML IVPB ONE (09:27)
[2020-04-14] MEDS: CEFTRIAXONE 1 GM in DEXTROSE 5%-WATER - 50 ML IVPB SCH (09:31)
[2020-04-14] MEDS: APIXABAN 5 MG TABLET PO SCH ×2 (09:34→21:25)
[2020-04-14] MEDS: guaiFENesin/CODEINE 5 ML UNIT-DOSE CUPS PO PRN (09:34)
[2020-04-14] MEDS: FUROSEMIDE 20 MG TABLET (FP) PO SCH (09:34)
[2020-04-14] MEDS: BENZOCAINE/MENTH/CETYLPYRD CL 1 EACH LOZENGE MM PRN ×2 (09:37→21:25)
[2020-04-14] MEDS ORDERED: guaiFENesin/CODEINE 5 ML UNIT-DOSE CUPS PO ONE (21:20)
[2020-04-15] MEDS ORDERED: ENOXAPARIN NA (PORCINE) 80 MG/0.8 ML DISP.SYRIN SQ SCH (01:45)
[2020-04-15] MEDS ORDERED: APIXABAN 5 MG TABLET PO ONE (01:49)
[2020-04-15] MEDS ORDERED: cefTRIAXone SODIUM 1 GM VIAL ONE (08:59)
[2020-04-15] MEDS ORDERED: DEXTROSE 5%-WATER - 50 ML IVPB ONE (09:00)
[2020-04-15] MEDS: CEFTRIAXONE 1 GM in DEXTROSE 5%-WATER - 50 ML IVPB SCH (09:35)
[2020-04-15] MEDS: FUROSEMIDE 20 MG TABLET (FP) PO SCH (09:35)
[2020-04-15] MEDS ORDERED: APIXABAN 5 MG TABLET PO SCH ×2 (10:00→22:00)
[2020-04-15] MEDS ORDERED: hydrALAZINE HCL 25 MG TABLET (FP) PO SCH (14:00)
[2020-04-15 15:44] VITALS: BP 155/80; PULSE 122; TEMP 97.9
[2020-04-15] MEDS ORDERED: CEFPODOXIME PROXETIL 100 MG TABLET PO SCH (22:00)
[2020-04-15] MEDS ORDERED: ATORVASTATIN CA 40 MG TABLET (FP) PO SCH (22:00)
[2020-04-16] MEDS ORDERED: VALSARTAN 160 MG TABLET PO SCH (10:00)
[2020-04-16] MEDS ORDERED: CYANOCOBALAMIN 1,000 MCG TABLET (FP) PO SCH (10:00)
[2020-04-16] MEDS ORDERED: HYDROCHLOROTHIAZIDE 25 MG TABLET (FP) PO SCH (10:00)
[2020-04-16] MEDS ORDERED: NEBIVOLOL 10 MG TABLET (FP) PO SCH (10:00)
[2020-04-16] MEDS ORDERED: APIXABAN 5 MG TABLET PO SCH (10:00)
[2020-04-16] MEDS ORDERED: CHOLECALCIFEROL (VIT D3) 1,000 UNIT (25 MCG) TABLET PO SCH (10:00)
== END 2020-04-15 16:47 | disposition home or self-care (01) | DRG 308 ==
LOC: FER 19:08 → SUPCPDRO 19:08 → J4W 04-11 01:02
PROVIDERS: ADMIT Internal Medicine; ATTEND Internal Medicine
DX: I48.91 Unspecified atrial fibrillation (principal); I50.31 Acute diastolic (congestive) heart failure; I24.8 Other forms of acute ischemic heart disease; N39.0 Urinary tract infection, site not specified; I82.4Z1 Acute embolism and thrombosis of unspecified deep veins of right distal lower extremity; I82.4Z2 Acute embolism and thrombosis of unspecified deep veins of left distal lower extremity; I11.0 Hypertensive heart disease with heart failure; E78.5 Hyperlipidemia, unspecified; J44.9 Chronic obstructive pulmonary disease, unspecified; Z85.3 Personal history of malignant neoplasm of breast; E87.70 Fluid overload, unspecified
CPT/HCPCS: 36415; 71045-TC-FY; 80048; 80053; 80061; 81003; 81015; 82550; 82553; 83036; 83721; 83735; 83880; 84100; 84443; 84484; 85025; 85027; 85610; 85730; 87086; 87186; 93005; 93306-TC; 93970-TC; 94761; 97116-GP; 97161-GP; 99285-25; C9803; U0003

== ENCOUNTER 2021-11-13 23:05 | Inpatient (IN) | payer OTHER ==
[2021-11-13 23:28] VITALS: BMI 35.9
[2021-11-14] MEDS ORDERED: ACETAMINOPHEN 1000 MG/100 ML BAG IVPB ONE (01:28)
[2021-11-14 01:41] LABS: BASO % 0.4 % (0-2.0); EOS % 0.9 % (0-4.5); HEMOGLOBIN 14.9 GM/dL (10.7-15.3); LYMPH % 6.5 % (8-40); MCH 30.1 pg (25.7-33.7); MCHC 33.9 g/dl (32.0-36.0); MEAN CELL VOLUME 88.8 fl (80-96); MEAN PLT VOLUME 8.2 fl (7.5-11.1); MONO % 6.2 % (3.8-10.2); PLATELET COUNT 187 10^3/uL (134-434); RBC 4.96 M/mm3 (3.60-5.2); RDW 14.3 % (11.6-15.6)
[2021-11-14 01:56] LABS: INR 2.22 (0.83-1.09); PROTHROMBIN TIME (PATIENT) 25.7 SEC (9.7-13.0)
[2021-11-14 01:59] LABS: ACTIVATED PTT 35.9 SECONDS (25.2-36.5)
[2021-11-14 02:03] LABS: ALBUMIN 3.1 g/dl (3.4-5.0); BLOOD UREA NITROGEN 23.3 mg/dL (7-18); CALCIUM 8.5 mg/dL (8.5-10.1)
[2021-11-14 02:06] LABS: CREATININE 1.3 mg/dL (0.55-1.3)
[2021-11-14] MEDS ORDERED: POTASSIUM CHLORIDE TABS 20 MEQ TABLET.ER (FP) PO ONE ×3 (02:06→03:33)
[2021-11-14] MEDS ORDERED: PIPERACILLIN/TAZOB 4.5 GM 4.5 GM in DEXTROSE 5%-WATER 100 ML IVPB ONE (02:06)
[2021-11-14] MEDS ORDERED: VANCOMYCIN 1 GM in D5W (PRE-DOCKED) 1,000 MG/250 ML IVPB ONE (02:06)
[2021-11-14 02:08] LABS: BILIRUBIN,TOTAL 0.8 mg/dL (0.2-1); TOT PROT 7.5 g/dl (6.4-8.2)
[2021-11-14] MEDS ORDERED: PIPERACILLIN/TAZOB 4.5 GM 4.5 GM/100 ML BAG IVPB ONE ×2 (03:25→03:34)
[2021-11-14] MEDS ORDERED: ACETAMINOPHEN INJECTION 100 ML IVPB ONE (03:33)
[2021-11-14] MEDS ORDERED: VANCOMYCIN 1 GRAM (PRE-DOCKED) 1,000 MG/250 ML BAG IVPB ONE (03:34)
[2021-11-14] MEDS ORDERED: CHOLECALCIFEROL (VIT D3) 1,000 UNIT (25 MCG) TABLET ONE (10:52)
[2021-11-14] MEDS ORDERED: LOSARTAN POTASSIUM 50 MG TABLET ONE (10:52)
[2021-11-14] MEDS ORDERED: DOCUSATE SODIUM 100 MG CAPSULE (FP) PO ONE (10:52)
[2021-11-14] MEDS ORDERED: APIXABAN 5 MG TABLET ONE (10:52)
[2021-11-14] MEDS ORDERED: HYDROCHLOROTHIAZIDE 25 MG TABLET (FP) ONE (10:52)
[2021-11-14] MEDS: DOCUSATE SODIUM 100 MG CAPSULE (FP) PO SCH (11:39)
[2021-11-14] MEDS: APIXABAN 5 MG TABLET PO SCH ×2 (11:40→23:32)
[2021-11-14] MEDS: POLYETHYLENE GLYCOL (HEALTHYLAX) 3350 17 GM PACKET PO SCH (11:40)
[2021-11-14] MEDS: CHOLECALCIFEROL (VIT D3) 1,000 UNIT (25 MCG) TABLET PO SCH (11:40)
[2021-11-14] MEDS: LOSARTAN POTASSIUM 50 MG TABLET PO SCH (11:40)
[2021-11-14] MEDS: HYDROCHLOROTHIAZIDE 25 MG TABLET (FP) PO SCH (11:41)
[2021-11-14] MEDS: hydrALAZINE HCL 25 MG TABLET (FP) PO SCH ×2 (14:27→23:32)
[2021-11-14] MEDS: CYANOCOBALAMIN 1,000 MCG TABLET (FP) PO SCH (14:28)
[2021-11-14] MEDS: NEBIVOLOL 10 MG TABLET (FP) PO SCH (14:29)
[2021-11-14] MEDS: guaiFENesin 200 MG/10 ML 10 ML UNIT-DOSE CUPS PO PRN ×2 (16:46→23:34)
[2021-11-14] MEDS ORDERED: PIPERACILLIN/TAZOBACTAM 3.375 GM VIAL IVPB ONE (17:01)
[2021-11-14] MEDS ORDERED: DEXTROSE 5%-WATER - 50 ML IVPB ONE (17:01)
[2021-11-14] MEDS: PIPERACILLIN/TAZOB 3.375 GM 3.375 GM in DEXTROSE 5%-WATER - 50 ML IVPB SCH (17:12)
[2021-11-14] MEDS: ATORVASTATIN CA 40 MG TABLET (FP) PO SCH (23:32)
[2021-11-15] MEDS ORDERED: DEXTROSE 5%-WATER - 50 ML IVPB ONE ×3 (01:26→17:03)
[2021-11-15] MEDS ORDERED: PIPERACILLIN/TAZOBACTAM 3.375 GM VIAL IVPB ONE ×3 (01:26→17:03)
[2021-11-15] MEDS: PIPERACILLIN/TAZOB 3.375 GM 3.375 GM in DEXTROSE 5%-WATER - 50 ML IVPB SCH ×3 (02:02→17:13)
[2021-11-15] MEDS: hydrALAZINE HCL 25 MG TABLET (FP) PO SCH ×3 (06:18→22:26)
[2021-11-15] MEDS: guaiFENesin 200 MG/10 ML 10 ML UNIT-DOSE CUPS PO PRN ×3 (06:18→22:26)
[2021-11-15] MEDS: APIXABAN 5 MG TABLET PO SCH ×2 (09:40→22:26)
[2021-11-15] MEDS: HYDROCHLOROTHIAZIDE 25 MG TABLET (FP) PO SCH (09:40)
[2021-11-15] MEDS: DOCUSATE SODIUM 100 MG CAPSULE (FP) PO SCH (09:40)
[2021-11-15] MEDS: CHOLECALCIFEROL (VIT D3) 1,000 UNIT (25 MCG) TABLET PO SCH (09:41)
[2021-11-15] MEDS: POLYETHYLENE GLYCOL (HEALTHYLAX) 3350 17 GM PACKET PO SCH (09:41)
[2021-11-15] MEDS: LOSARTAN POTASSIUM 50 MG TABLET PO SCH (09:41)
[2021-11-15] MEDS: CYANOCOBALAMIN 1,000 MCG TABLET (FP) PO SCH (09:41)
[2021-11-15] MEDS: NEBIVOLOL 10 MG TABLET (FP) PO SCH (09:41)
[2021-11-15 09:47] LABS: BASO % 0.4 % (0-2.0); EOS % 1.8 % (0-4.5); HEMATOCRIT 42.2 % (32.4-45.2); HEMOGLOBIN 14.1 GM/dL (10.7-15.3); LYMPH % 6.2 % (8-40); MCH 29.9 pg (25.7-33.7); MCHC 33.5 g/dl (32.0-36.0); MEAN CELL VOLUME 89.3 fl (80-96); MEAN PLT VOLUME 8.3 fl (7.5-11.1); MONO % 5.2 % (3.8-10.2); NEUT % 86.4 % (42.8-82.8); PLATELET COUNT 242 10^3/uL (134-434); RBC 4.72 M/mm3 (3.60-5.2); RDW 14.5 % (11.6-15.6); WHITE BLOOD COUNT 12.9 K/mm3 (4.0-10.0)
[2021-11-15 10:27] LABS: BLOOD UREA NITROGEN 30.4 mg/dL (7-18); CALCIUM 8.7 mg/dL (8.5-10.1)
[2021-11-15 10:28] LABS: ALBUMIN 2.8 g/dl (3.4-5.0)
[2021-11-15 10:30] LABS: CREATININE 1.3 mg/dL (0.55-1.3)
[2021-11-15 10:32] LABS: TOT PROT 7.3 g/dl (6.4-8.2)
[2021-11-15] MEDS ORDERED: diphenhydrAMINE HCL 25 MG CAPSULE (FP) PO PRN (14:19)
[2021-11-15] MEDS ORDERED: FUROSEMIDE 40 MG TABLET (FP) PO ONE (15:00)
[2021-11-15] MEDS: ACETAMINOPHEN 325 MG TABLET (FP) PO PRN (18:09)
[2021-11-15] MEDS: ATORVASTATIN CA 40 MG TABLET (FP) PO SCH (22:26)
[2021-11-16] MEDS ORDERED: DEXTROSE 5%-WATER - 50 ML IVPB ONE ×2 (02:29→10:32)
[2021-11-16] MEDS ORDERED: PIPERACILLIN/TAZOBACTAM 3.375 GM VIAL IVPB ONE ×3 (02:29→16:43)
[2021-11-16] MEDS: PIPERACILLIN/TAZOB 3.375 GM 3.375 GM in DEXTROSE 5%-WATER - 50 ML IVPB SCH ×3 (03:03→18:13)
[2021-11-16] MEDS: hydrALAZINE HCL 25 MG TABLET (FP) PO SCH ×3 (05:49→21:58)
[2021-11-16 09:08] LABS: HEMOGLOBIN 13.1 GM/dL (10.7-15.3); RBC 4.39 M/mm3 (3.60-5.2); WHITE BLOOD COUNT 11.1 K/mm3 (4.0-10.0)
[2021-11-16 09:09] LABS: BASO % 0.1 % (0-2.0); EOS % 1.2 % (0-4.5); HEMATOCRIT 38.8 % (32.4-45.2); LYMPH % 7.4 % (8-40); MCH 29.7 pg (25.7-33.7); MCHC 33.6 g/dl (32.0-36.0); MEAN CELL VOLUME 88.4 fl (80-96); MEAN PLT VOLUME 8.4 fl (7.5-11.1); MONO % 7.8 % (3.8-10.2); NEUT % 83.5 % (42.8-82.8); PLATELET COUNT 260 10^3/uL (134-434); RDW 14.9 % (11.6-15.6)
[2021-11-16 09:48] LABS: CALCIUM 8.7 mg/dL (8.5-10.1)
[2021-11-16 09:49] LABS: BLOOD UREA NITROGEN 37.3 mg/dL (7-18); MAGNESIUM 2.4 mg/dL (1.8-2.4)
[2021-11-16 09:51] LABS: CREATININE 1.4 mg/dL (0.55-1.3)
[2021-11-16] MEDS: CHOLECALCIFEROL (VIT D3) 1,000 UNIT (25 MCG) TABLET PO SCH (11:20)
[2021-11-16] MEDS: NEBIVOLOL 10 MG TABLET (FP) PO SCH (11:20)
[2021-11-16] MEDS: HYDROCHLOROTHIAZIDE 25 MG TABLET (FP) PO SCH (11:20)
[2021-11-16] MEDS: guaiFENesin 200 MG/10 ML 10 ML UNIT-DOSE CUPS PO PRN ×2 (11:20→22:00)
[2021-11-16] MEDS: DOCUSATE SODIUM 100 MG CAPSULE (FP) PO SCH (11:21)
[2021-11-16] MEDS: APIXABAN 5 MG TABLET PO SCH ×2 (11:21→22:00)
[2021-11-16] MEDS: LOSARTAN POTASSIUM 50 MG TABLET PO SCH (11:21)
[2021-11-16] MEDS: CYANOCOBALAMIN 1,000 MCG TABLET (FP) PO SCH (11:21)
[2021-11-16] MEDS: POLYETHYLENE GLYCOL (HEALTHYLAX) 3350 17 GM PACKET PO SCH (11:21)
[2021-11-16] MEDS: VANCOMYCIN 1 GRAM (PRE-DOCKED) 1,000 MG/250 ML BAG IVPB SCH (14:57)
[2021-11-16] MEDS: CLOTRIMAZOLE 1% CREAM TP SCH ×2 (15:31→22:02)
[2021-11-16] MEDS: ACETAMINOPHEN 325 MG TABLET (FP) PO PRN (21:58)
[2021-11-16] MEDS: ATORVASTATIN CA 40 MG TABLET (FP) PO SCH (22:00)
[2021-11-16] MEDS: BUDESONIDE/FORMETEROL FUMARATE 80/4.5 mcg INHALER IH SCH (22:01)
[2021-11-17] MEDS ORDERED: PIPERACILLIN/TAZOBACTAM 3.375 GM VIAL IVPB ONE ×3 (00:07→16:21)
[2021-11-17] MEDS ORDERED: DEXTROSE 5%-WATER - 50 ML IVPB ONE ×3 (00:07→16:21)
[2021-11-17] MEDS: VANCOMYCIN 1 GRAM (PRE-DOCKED) 1,000 MG/250 ML BAG IVPB SCH ×2 (00:19→12:59)
[2021-11-17] MEDS ORDERED: ARTIFICIAL TEARS (POLYVINYL ALCOHOL) OPTH DROPS OU ONE (00:38)
[2021-11-17] MEDS ORDERED: ARTIFICIAL TEARS (POLYVINYL ALCOHOL) OPTH DROPS OU PRN (00:44)
[2021-11-17] MEDS: PIPERACILLIN/TAZOB 3.375 GM 3.375 GM in DEXTROSE 5%-WATER - 50 ML IVPB SCH ×3 (02:01→18:12)
[2021-11-17] MEDS: hydrALAZINE HCL 25 MG TABLET (FP) PO SCH ×3 (06:19→21:28)
[2021-11-17] MEDS: ACETAMINOPHEN 325 MG TABLET (FP) PO PRN (06:26)
[2021-11-17 08:57] LABS: BASO % 0.2 % (0-2.0); EOS % 2.4 % (0-4.5); HEMOGLOBIN 13.6 GM/dL (10.7-15.3); LYMPH % 8.3 % (8-40); MCH 30.1 pg (25.7-33.7); MCHC 33.9 g/dl (32.0-36.0); MEAN CELL VOLUME 88.6 fl (80-96); MEAN PLT VOLUME 8.2 fl (7.5-11.1); MONO % 9.1 % (3.8-10.2); PLATELET COUNT 264 10^3/uL (134-434); RBC 4.51 M/mm3 (3.60-5.2); WHITE BLOOD COUNT 9.6 K/mm3 (4.0-10.0)
[2021-11-17 10:05] LABS: CALCIUM 8.4 mg/dL (8.5-10.1)
[2021-11-17 10:06] LABS: BLOOD UREA NITROGEN 43.3 mg/dL (7-18)
[2021-11-17 10:09] LABS: CREATININE 1.4 mg/dL (0.55-1.3)
[2021-11-17] MEDS: CYANOCOBALAMIN 1,000 MCG TABLET (FP) PO SCH (11:02)
[2021-11-17] MEDS: HYDROCHLOROTHIAZIDE 25 MG TABLET (FP) PO SCH (11:02)
[2021-11-17] MEDS: CHOLECALCIFEROL (VIT D3) 1,000 UNIT (25 MCG) TABLET PO SCH (11:02)
[2021-11-17] MEDS: LOSARTAN POTASSIUM 50 MG TABLET PO SCH (11:02)
[2021-11-17] MEDS: APIXABAN 5 MG TABLET PO SCH ×2 (11:02→21:29)
[2021-11-17] MEDS: NEBIVOLOL 10 MG TABLET (FP) PO SCH (11:02)
[2021-11-17] MEDS: CLOTRIMAZOLE 1% CREAM TP SCH ×2 (11:03→21:33)
[2021-11-17] MEDS: DOCUSATE SODIUM 100 MG CAPSULE (FP) PO SCH (11:03)
[2021-11-17] MEDS: POLYETHYLENE GLYCOL (HEALTHYLAX) 3350 17 GM PACKET PO SCH (11:03)
[2021-11-17] MEDS: BUDESONIDE/FORMETEROL FUMARATE 80/4.5 mcg INHALER IH SCH ×2 (11:03→21:31)
[2021-11-17] MEDS ORDERED: POTASSIUM CHLORIDE ORAL LIQUID 20 MEQ/15 ML PO ONE (15:02)
[2021-11-17] MEDS: guaiFENesin 200 MG/10 ML 10 ML UNIT-DOSE CUPS PO PRN (18:18)
[2021-11-17] MEDS: ATORVASTATIN CA 40 MG TABLET (FP) PO SCH (21:29)
[2021-11-18] MEDS ORDERED: DEXTROSE 5%-WATER - 50 ML IVPB ONE ×2 (01:14→08:24)
[2021-11-18] MEDS ORDERED: PIPERACILLIN/TAZOBACTAM 3.375 GM VIAL IVPB ONE ×2 (01:14→08:23)
[2021-11-18] MEDS: VANCOMYCIN 1 GRAM (PRE-DOCKED) 1,000 MG/250 ML BAG IVPB SCH (01:55)
[2021-11-18] MEDS: PIPERACILLIN/TAZOB 3.375 GM 3.375 GM in DEXTROSE 5%-WATER - 50 ML IVPB SCH ×2 (04:40→09:16)
[2021-11-18] MEDS: hydrALAZINE HCL 25 MG TABLET (FP) PO SCH ×2 (06:54→13:17)
[2021-11-18 09:10] LABS: BASO % 0.3 % (0-2.0); EOS % 2.7 % (0-4.5); HEMATOCRIT 39.9 % (32.4-45.2); HEMOGLOBIN 13.4 GM/dL (10.7-15.3); LYMPH % 9.1 % (8-40); MCHC 33.5 g/dl (32.0-36.0); MEAN CELL VOLUME 89.6 fl (80-96); MEAN PLT VOLUME 8.2 fl (7.5-11.1); MONO % 9.1 % (3.8-10.2); NEUT % 78.8 % (42.8-82.8); PLATELET COUNT 280 10^3/uL (134-434); RBC 4.45 M/mm3 (3.60-5.2); RDW 14.8 % (11.6-15.6); WHITE BLOOD COUNT 9.9 K/mm3 (4.0-10.0)
[2021-11-18] MEDS: LOSARTAN POTASSIUM 50 MG TABLET PO SCH (09:12)
[2021-11-18] MEDS: APIXABAN 5 MG TABLET PO SCH (09:12)
[2021-11-18] MEDS: DOCUSATE SODIUM 100 MG CAPSULE (FP) PO SCH (09:12)
[2021-11-18] MEDS: CYANOCOBALAMIN 1,000 MCG TABLET (FP) PO SCH (09:13)
[2021-11-18] MEDS: NEBIVOLOL 10 MG TABLET (FP) PO SCH (09:13)
[2021-11-18] MEDS: CHOLECALCIFEROL (VIT D3) 1,000 UNIT (25 MCG) TABLET PO SCH (09:13)
[2021-11-18] MEDS: HYDROCHLOROTHIAZIDE 25 MG TABLET (FP) PO SCH (09:14)
[2021-11-18] MEDS: POLYETHYLENE GLYCOL (HEALTHYLAX) 3350 17 GM PACKET PO SCH (09:15)
[2021-11-18] MEDS: BUDESONIDE/FORMETEROL FUMARATE 80/4.5 mcg INHALER IH SCH (09:24)
[2021-11-18] MEDS: CLOTRIMAZOLE 1% CREAM TP SCH (09:24)
[2021-11-18 09:45] LABS: CALCIUM 8.3 mg/dL (8.5-10.1)
[2021-11-18 09:46] LABS: BLOOD UREA NITROGEN 47.1 mg/dL (7-18)
[2021-11-18 09:49] LABS: CREATININE 1.3 mg/dL (0.55-1.3)
[2021-11-18] MEDS ORDERED: POTASSIUM CHLORIDE ORAL LIQUID 20 MEQ/15 ML PO ONE (12:13)
[2021-11-18 13:09] VITALS: BP 103/50; PULSE 86; TEMP 97.8
[2021-11-18] MEDS ORDERED: AMOX TR/POT CLAV 875MG/125MG TABLETS (FP) PO SCH (17:30)
== END 2021-11-18 15:30 | disposition home or self-care (01) | DRG 603 ==
LOC: JER 23:05 → JERBED 11-14 06:42 → J7W 11-14 13:35
PROVIDERS: ADMIT Internal Medicine; ATTEND Internal Medicine
DX: L03.116 Cellulitis of left lower limb (principal); J70.1 Chronic and other pulmonary manifestations due to radiation; I50.32 Chronic diastolic (congestive) heart failure; I48.91 Unspecified atrial fibrillation; K76.0 Fatty (change of) liver, not elsewhere classified; I11.0 Hypertensive heart disease with heart failure; M25.512 Pain in left shoulder; Z85.3 Personal history of malignant neoplasm of breast; E87.6 Hypokalemia
CPT/HCPCS: 0241U-QW; 36415; 71045-TC-FY; 73030-TC-LT-FY; 73030-TC-RT-FY; 73590-TC-LT-FY; 73630-TC-LT; 80048; 80053; 83735; 83880; 84484; 85025; 85610; 85730; 86850; 86900; 86901; 87040; 87077; 93005; 93010; 93306-TC; 97116-GP; 97161-GP; 99285-25; C9803-CS; U0003; U0005

== ENCOUNTER 2024-01-14 23:38 | Inpatient (IN) | payer OTHER ==
[2024-01-15] MEDS ORDERED: FUROSEMIDE 40 MG/4 ML INJECTABLE VIAL ONE (00:42)
[2024-01-15] MEDS: FUROSEMIDE 40 MG/4 ML INJECTABLE VIAL IVPUSH ONE (01:09)
[2024-01-15 01:15] LABS: BASO % 0.5 % (0-2.0); EOS % 1.8 % (0-4.5); HEMATOCRIT 49.1 % (32.4-45.2); HEMOGLOBIN 16.3 GM/dL (10.7-15.3); LYMPH % 13.1 % (8-40); MCH 31.2 pg (25.7-33.7); MCHC 33.2 g/dl (32.0-36.0); MEAN CELL VOLUME 93.8 fl (80-96); MEAN PLT VOLUME 9.4 fl (7.5-11.1); MONO % 8.4 % (3.8-10.2); NEUT % 76.2 % (42.8-82.8); PLATELET COUNT 195 10^3/uL (134-434); RBC 5.24 M/mm3 (3.60-5.2); WHITE BLOOD COUNT 8.4 K/mm3 (4.0-10.0)
[2024-01-15 02:02] LABS: CHLORIDE 110 mmol/L (98-107); SODIUM 139 mmol/L (136-145)
[2024-01-15 02:05] LABS: ALBUMIN 3.3 g/dl (3.4-5.0); CALCIUM 8.9 mg/dL (8.5-10.1); CO2 22 mmol/L (21-32); GLUCOSE,RANDOM 112 mg/dL (74-106)
[2024-01-15 02:06] LABS: ANION GAP 7 mmol/L (4-13); POTASSIUM 8.8 mmol/L (3.5-5.1)
[2024-01-15 02:08] LABS: CREATININE 1.1 mg/dL (0.55-1.3)
[2024-01-15 02:09] LABS: TOT PROT 7.2 g/dl (6.4-8.2)
[2024-01-15 02:10] LABS: ALK PHOS 77 U/L (45-117)
[2024-01-15 02:11] LABS: N-TERMINAL BNP 7864.2 pg/ml (5-125)
[2024-01-15 02:15] LABS: SGOT/AST 97 U/L (15-37); SGPT/ALT 25 U/L (13-61)
[2024-01-15 03:11] LABS: CALCIUM 9.3 mg/dL (8.5-10.1); CHLORIDE 109 mmol/L (98-107); POTASSIUM 6.3 mmol/L (3.5-5.1); SODIUM 141 mmol/L (136-145)
[2024-01-15 03:13] LABS: ANION GAP 7 mmol/L (4-13); CO2 25 mmol/L (21-32); GLUCOSE,RANDOM 118 mg/dL (74-106)
[2024-01-15 03:16] LABS: CREATININE 1.2 mg/dL (0.55-1.3)
[2024-01-15 03:22] LABS: PH,URINE 6.5 (5.0-8.0); URINE APPEARANCE CLEAR; URINE BILIRUBIN NEGATIVE (NEGATIVE); URINE COLOR YELLOW; URINE GLUCOSE (UA) NEGATIVE (NEGATIVE); URINE KETONE NEGATIVE (NEGATIVE); URINE LEUK ESTERASE NEGATIVE (NEGATIVE); URINE NITRITE NEGATIVE (NEGATIVE); URINE PROTEIN NEGATIVE (NEGATIVE); URINE UROBILINOGEN 0.2 mg/dL (0.2-1.0)
[2024-01-15 08:27] VITALS: BMI 39.2
[2024-01-15 09:53] LABS: POTASSIUM 3.5 mmol/L (3.5-5.1)
[2024-01-15 09:54] LABS: CALCIUM 9.5 mg/dL (8.5-10.1)
[2024-01-15 09:55] LABS: BLOOD UREA NITROGEN 23.4 mg/dL (7-18)
[2024-01-15 09:58] LABS: CREATININE 1.1 mg/dL (0.55-1.3)
[2024-01-15] MEDS ORDERED: HYDROCHLOROTHIAZIDE 25 MG TABLET (FP) PO SCH (10:45)
[2024-01-15] MEDS ORDERED: hydrALAZINE HCL 25 MG TABLET (FP) PO SCH ×2 (10:45→22:00)
[2024-01-15] MEDS: hydrALAZINE HCL 25 MG TABLET (FP) PO SCH (10:55)
[2024-01-15] MEDS: CHOLECALCIFEROL (VIT D3) 1,000 UNIT (25 MCG) TABLET PO SCH (10:55)
[2024-01-15] MEDS: CYANOCOBALAMIN 1,000 MCG TABLET (FP) PO SCH (10:55)
[2024-01-15] MEDS: APIXABAN 5 MG TABLET PO SCH (10:55)
[2024-01-15] MEDS: POTASSIUM CHLORIDE TABS 10 MEQ TABLET.ER (FP) PO SCH (10:56)
[2024-01-15] MEDS: HYDROCHLOROTHIAZIDE 12.5 MG CAPSULE (FP) PO SCH (10:56)
[2024-01-15] MEDS: LOSARTAN POTASSIUM 50 MG TABLET PO SCH (10:58)
[2024-01-15] MEDS: NEBIVOLOL 10 MG TABLET (FP) PO SCH (10:58)
[2024-01-15 11:06] LABS: MAGNESIUM 1.9 mg/dL (1.8-2.4)
[2024-01-15] MEDS: MAGNESIUM SULF 50% (8.12 MEQ/2 ML-1 GM VIAL) IVPB ONE (12:02)
[2024-01-15] MEDS: FUROSEMIDE 40 MG/4 ML INJECTABLE VIAL IVPUSH SCH (14:00)
[2024-01-15] MEDS: POTASSIUM CHLORIDE TABS 20 MEQ TABLET.ER (FP) PO ONE (14:00)
[2024-01-15] MEDS: ATORVASTATIN CA 20 MG TABLET (FP) PO SCH (21:36)
[2024-01-16 07:20] LABS: POTASSIUM 3.7 mmol/L (3.5-5.1)
[2024-01-16 07:29] LABS: ALBUMIN 3.3 g/dl (3.4-5.0); BLOOD UREA NITROGEN 29.2 mg/dL (7-18); CALCIUM 9.2 mg/dL (8.5-10.1); MAGNESIUM 2.2 mg/dL (1.8-2.4)
[2024-01-16 07:30] LABS: BILIRUBIN,TOTAL 1.6 mg/dL (0.2-1); TOT PROT 6.2 g/dl (6.4-8.2)
[2024-01-16 07:32] LABS: CREATININE 1.1 mg/dL (0.55-1.3); PHOSPHOROUS 3.5 mg/dL (2.5-4.9)
[2024-01-16] MEDS ORDERED: CHOLECALCIFEROL (VIT D3) 1,000 UNIT (25 MCG) TABLET PO SCH (10:00)
[2024-01-16] MEDS ORDERED: CYANOCOBALAMIN 1,000 MCG TABLET (FP) PO SCH (10:00)
[2024-01-16] MEDS ORDERED: HYDROCHLOROTHIAZIDE 12.5 MG CAPSULE (FP) PO SCH (10:00)
[2024-01-17 07:45] LABS: HEMATOCRIT 54.8 % (32.4-45.2); HEMOGLOBIN 18.1 GM/dL (10.7-15.3); MCH 30.9 pg (25.7-33.7); MEAN CELL VOLUME 93.7 fl (80-96); MEAN PLT VOLUME 9.1 fl (7.5-11.1); PLATELET COUNT 188 10^3/uL (134-434); RBC 5.85 M/mm3 (3.60-5.2); RDW 16.4 % (11.6-15.6); WHITE BLOOD COUNT 11.4 K/mm3 (4.0-10.0)
[2024-01-17 08:06] LABS: POTASSIUM 3.4 mmol/L (3.5-5.1)
[2024-01-17 08:08] LABS: CALCIUM 9.9 mg/dL (8.5-10.1)
[2024-01-17 08:09] LABS: ALBUMIN 3.4 g/dl (3.4-5.0); BLOOD UREA NITROGEN 31.4 mg/dL (7-18); MAGNESIUM 1.9 mg/dL (1.8-2.4)
[2024-01-17 08:12] LABS: CREATININE 1.1 mg/dL (0.55-1.3)
[2024-01-17 08:13] LABS: BILIRUBIN,TOTAL 2.1 mg/dL (0.2-1)
[2024-01-17 08:14] LABS: TOT PROT 6.7 g/dl (6.4-8.2)
[2024-01-17] MEDS: ACETAMINOPHEN 325 MG TABLET (FP) PO PRN (08:42)
[2024-01-17] MEDS: NEBIVOLOL 10 MG TABLET (FP) PO ONE (13:02)
[2024-01-17] MEDS: hydrALAZINE HCL 50 MG TABLET (FP) PO SCH (21:50)
[2024-01-17] MEDS ORDERED: NEBIVOLOL 10 MG TABLET (FP) PO SCH (22:00)
[2024-01-18 07:25] LABS: POTASSIUM 3.3 mmol/L (3.5-5.1)
[2024-01-18 07:27] LABS: CALCIUM 9.2 mg/dL (8.5-10.1)
[2024-01-18 07:29] LABS: BLOOD UREA NITROGEN 47.1 mg/dL (7-18)
[2024-01-18 07:31] LABS: CREATININE 1.4 mg/dL (0.55-1.3)
[2024-01-18 07:32] LABS: BILIRUBIN,TOTAL 1.6 mg/dL (0.2-1); TOT PROT 6.1 g/dl (6.4-8.2)
[2024-01-18 08:50] VITALS: RESP 18
[2024-01-18 09:14] LABS: HEMATOCRIT 52.7 % (32.4-45.2); HEMOGLOBIN 17.6 GM/dL (10.7-15.3); MCH 31.1 pg (25.7-33.7); MCHC 33.5 g/dl (32.0-36.0); MEAN CELL VOLUME 92.8 fl (80-96); MEAN PLT VOLUME 9.4 fl (7.5-11.1); PLATELET COUNT 189 10^3/uL (134-434); RBC 5.67 M/mm3 (3.60-5.2); RDW 16.1 % (11.6-15.6); WHITE BLOOD COUNT 9.9 K/mm3 (4.0-10.0)
[2024-01-18] MEDS: NEBIVOLOL 10 MG TABLET (FP) PO SCH (09:34)
[2024-01-18] MEDS: POTASSIUM CHLORIDE ORAL LIQUID 20 MEQ/15 ML PO ONE (12:22)
[2024-01-18 15:44] VITALS: BP 108/70; PULSE 83; TEMP 98.4
[2024-01-19] MEDS ORDERED: FUROSEMIDE 40 MG TABLET (FP) PO SCH (10:00)
== END 2024-01-18 17:13 | disposition home or self-care (01) | DRG 291 ==
LOC: JER 23:38 → JERBED 01-15 02:54 → J4W 01-15 04:57 → OBSVTOIN 01-15 14:23
PROVIDERS: ADMIT Internal Medicine; ATTEND Internal Medicine
DX: I11.0 Hypertensive heart disease with heart failure (principal); I50.33 Acute on chronic diastolic (congestive) heart failure; J44.9 Chronic obstructive pulmonary disease, unspecified; E78.5 Hyperlipidemia, unspecified
CPT/HCPCS: 36415; 71045-TC-FY; 80048; 80053; 81003; 83735; 83880; 84100; 84484; 85025; 85027; 87086; 93005; 93010; 93306-TC; 97116-GP; 97162-GP; 99285-25; G0378

== ENCOUNTER 2024-05-04 22:21 | Inpatient (IN) | payer OTHER ==
[2024-05-05] MEDS ORDERED: ALBUTEROL SO4 2.5/IPRATROPIUM 0.5 INH SOL 3 ML VIAL.NEB. NEB ONE (00:05)
[2024-05-05] MEDS: ALBUTEROL SO4 2.5/IPRATROPIUM 0.5 INH SOL 3 ML VIAL.NEB. NEB ONE (00:09)
[2024-05-05 01:13] LABS: BASO % 0.8 % (0-2.0); EOS % 1.2 % (0-4.5); HEMATOCRIT 47.9 % (32.4-45.2); HEMOGLOBIN 15.9 GM/dL (10.7-15.3); LYMPH % 18.7 % (8-40); MCH 31.1 pg (25.7-33.7); MCHC 33.2 g/dl (32.0-36.0); MEAN CELL VOLUME 93.7 fl (80-96); MEAN PLT VOLUME 9.4 fl (7.5-11.1); MONO % 9.7 % (3.8-10.2); NEUT % 69.6 % (42.8-82.8); PLATELET COUNT 200 10^3/uL (134-434); RBC 5.11 M/mm3 (3.60-5.2); WHITE BLOOD COUNT 9.7 K/mm3 (4.0-10.0)
[2024-05-05 01:16] LABS: VENOUS BASE EXCESS 3.3 mmol/L (-2-2); VENOUS O2 SATURATION 81.3 % (70-80); VENOUS PCO2 49.2 mmHg (38-52); VENOUS PH 7.393 (7.310-7.410)
[2024-05-05] MEDS ORDERED: FUROSEMIDE 40 MG/4 ML INJECTABLE VIAL ONE (01:23)
[2024-05-05] MEDS: FUROSEMIDE 40 MG/4 ML INJECTABLE VIAL IVPUSH ONE (01:27)
[2024-05-05 01:35] LABS: ALBUMIN 3.6 g/dl (3.4-5.0); BLOOD UREA NITROGEN 21.2 mg/dL (7-18); CALCIUM 9.7 mg/dL (8.5-10.1); MAGNESIUM 1.9 mg/dL (1.8-2.4)
[2024-05-05 01:39] LABS: CREATININE 1.1 mg/dL (0.55-1.3)
[2024-05-05 01:40] LABS: TOT PROT 6.8 g/dl (6.4-8.2)
[2024-05-05 06:09] VITALS: BMI 38.4
[2024-05-05 09:30] LABS: CHOLESTEROL 200 mg/dL (50-200)
[2024-05-05 09:32] LABS: BASO % 0.4 % (0-2.0); EOS % 1.8 % (0-4.5); HEMATOCRIT 48.6 % (32.4-45.2); HEMOGLOBIN 16.1 GM/dL (10.7-15.3); LDL CHOLESTEROL (ONLY SJRH) 133 mg/dL (5-100); LYMPH % 18.9 % (8-40); MCH 31.2 pg (25.7-33.7); MCHC 33.2 g/dl (32.0-36.0); MEAN PLT VOLUME 8.9 fl (7.5-11.1); NEUT % 69.9 % (42.8-82.8); PLATELET COUNT 175 10^3/uL (134-434); RBC 5.17 M/mm3 (3.60-5.2); RDW 15.1 % (11.6-15.6); WHITE BLOOD COUNT 7.6 K/mm3 (4.0-10.0)
[2024-05-05 09:33] LABS: HDL CHOLESTEROL 53 mg/dL (40-60)
[2024-05-05 09:47] LABS: ALBUMIN 3.6 g/dl (3.4-5.0)
[2024-05-05 09:48] LABS: CALCIUM 9.5 mg/dL (8.5-10.1)
[2024-05-05 09:49] LABS: BLOOD UREA NITROGEN 20.2 mg/dL (7-18); MAGNESIUM 1.9 mg/dL (1.8-2.4)
[2024-05-05 09:50] LABS: PHOSPHOROUS 4.2 mg/dL (2.5-4.9)
[2024-05-05 09:51] LABS: BILIRUBIN,TOTAL 1.1 mg/dL (0.2-1); TOT PROT 6.8 g/dl (6.4-8.2)
[2024-05-05] MEDS: FUROSEMIDE 40 MG/4 ML INJECTABLE VIAL IVPUSH SCH ×2 (10:01→13:22)
[2024-05-05] MEDS: NEBIVOLOL 10 MG TABLET (FP) PO SCH (10:01)
[2024-05-05] MEDS: ASPIRIN 81 MG CHEWABLE TABLETS PO SCH (10:02)
[2024-05-05] MEDS: APIXABAN 5 MG TABLET PO SCH (10:02)
[2024-05-05] MEDS: METOPROLOL TARTRATE 5 MG/5 ML VIAL IVPUSH PRN (10:41)
[2024-05-05] MEDS: ACETAMINOPHEN 325 MG TABLET (FP) PO PRN (15:01)
[2024-05-05] MEDS: BENZONATATE 200 MG CAPSULE PO PRN (16:30)
[2024-05-05 20:55] LABS: EPI CELLS 4 /uL (0-25.1); HYALINE CASTS 0 /uL (0-3.1); PH,URINE 5.5 (5.0-8.0); URINE APPEARANCE CLEAR; URINE BACTERIA >9,000 /uL (0-1359); URINE BILIRUBIN NEGATIVE (NEGATIVE); URINE COLOR YELLOW; URINE GLUCOSE (UA) NEGATIVE (NEGATIVE); URINE KETONE NEGATIVE (NEGATIVE); URINE LEUK ESTERASE 2+ (NEGATIVE); URINE NITRITE POSITIVE (NEGATIVE); URINE PROTEIN NEGATIVE (NEGATIVE); URINE RBC 13 /uL (0-23.9); URINE UROBILINOGEN 0.2 mg/dL (0.2-1.0); URINE WBC 158 /uL (0-25.8)
[2024-05-05] MEDS: ATORVASTATIN CA 20 MG TABLET (FP) PO SCH (21:05)
[2024-05-06 07:45] LABS: BASO % 0.7 % (0-2.0); EOS % 2.1 % (0-4.5); HEMATOCRIT 49.4 % (32.4-45.2); HEMOGLOBIN 15.9 GM/dL (10.7-15.3); MCH 30.7 pg (25.7-33.7); MCHC 32.2 g/dl (32.0-36.0); MEAN CELL VOLUME 95.3 fl (80-96); MEAN PLT VOLUME 8.6 fl (7.5-11.1); MONO % 7.5 % (3.8-10.2); NEUT % 76.7 % (42.8-82.8); PLATELET COUNT 172 10^3/uL (134-434); RBC 5.19 M/mm3 (3.60-5.2); RDW 14.9 % (11.6-15.6); WHITE BLOOD COUNT 8.4 K/mm3 (4.0-10.0)
[2024-05-06 07:48] LABS: POTASSIUM 3.7 mmol/L (3.5-5.1)
[2024-05-06 07:50] LABS: ALBUMIN 3.1 g/dl (3.4-5.0); BLOOD UREA NITROGEN 28.8 mg/dL (7-18)
[2024-05-06 07:51] LABS: CALCIUM 9.1 mg/dL (8.5-10.1)
[2024-05-06 07:53] LABS: CREATININE 1.1 mg/dL (0.55-1.3); PHOSPHOROUS 4.3 mg/dL (2.5-4.9)
[2024-05-06 07:55] LABS: BILIRUBIN,TOTAL 0.9 mg/dL (0.2-1); TOT PROT 6.3 g/dl (6.4-8.2)
[2024-05-06] MEDS: LOSARTAN POTASSIUM 50 MG TABLET PO SCH (10:53)
[2024-05-06] MEDS: guaiFENesin/D-METHORPHAN HB 10 ML UNIT-DOSE CUPS PO PRN (10:54)
[2024-05-07] MEDS: MELATONIN 5 MG TABLETS PO PRN (03:06)
[2024-05-07 07:04] LABS: POTASSIUM 3.2 mmol/L (3.5-5.1)
[2024-05-07 07:09] LABS: BLOOD UREA NITROGEN 32.9 mg/dL (7-18); CALCIUM 8.7 mg/dL (8.5-10.1); MAGNESIUM 1.7 mg/dL (1.8-2.4)
[2024-05-07 07:12] LABS: CREATININE 1.1 mg/dL (0.55-1.3)
[2024-05-07 07:13] LABS: PHOSPHOROUS 3.4 mg/dL (2.5-4.9)
[2024-05-07 07:14] LABS: HEMATOCRIT 46.7 % (32.4-45.2); HEMOGLOBIN 16.1 GM/dL (10.7-15.3); MCH 32.2 pg (25.7-33.7); MCHC 34.4 g/dl (32.0-36.0); MEAN CELL VOLUME 93.5 fl (80-96); MEAN PLT VOLUME 8.8 fl (7.5-11.1); PLATELET COUNT 172 10^3/uL (134-434); RBC 4.99 M/mm3 (3.60-5.2); RDW 14.5 % (11.6-15.6); TOT PROT 6.1 g/dl (6.4-8.2); WHITE BLOOD COUNT 9.8 K/mm3 (4.0-10.0)
[2024-05-07] MEDS: POTASSIUM CHLORIDE ORAL LIQUID 20 MEQ/15 ML PO SCH (09:33)
[2024-05-08 07:50] LABS: POTASSIUM 3.4 mmol/L (3.5-5.1)
[2024-05-08 07:57] LABS: ALBUMIN 2.9 g/dl (3.4-5.0); BLOOD UREA NITROGEN 39.5 mg/dL (7-18); CALCIUM 9.3 mg/dL (8.5-10.1); CREATININE 1.1 mg/dL (0.55-1.3); MAGNESIUM 2.1 mg/dL (1.8-2.4)
[2024-05-08 07:58] LABS: PHOSPHOROUS 4.1 mg/dL (2.5-4.9)
[2024-05-08 08:20] LABS: HEMATOCRIT 47.2 % (32.4-45.2); HEMOGLOBIN 15.9 GM/dL (10.7-15.3); MCH 31.7 pg (25.7-33.7); MCHC 33.7 g/dl (32.0-36.0); MEAN CELL VOLUME 94.1 fl (80-96); PLATELET COUNT 187 10^3/uL (134-434); RBC 5.02 M/mm3 (3.60-5.2); RDW 14.7 % (11.6-15.6); WHITE BLOOD COUNT 9.1 K/mm3 (4.0-10.0)
[2024-05-08] MEDS: POTASSIUM CHLORIDE TABS 10 MEQ TABLET.ER (FP) PO ONE (15:10)
[2024-05-09] MEDS: ALBUTEROL SO4 2.5/IPRATROPIUM 0.5 INH SOL 3 ML VIAL.NEB. NEB PRN (02:00)
[2024-05-09 08:09] LABS: POTASSIUM 3.7 mmol/L (3.5-5.1)
[2024-05-09 08:11] VITALS: BP 151/95; PULSE 106; RESP 17; TEMP 98.6
[2024-05-09 08:14] LABS: CALCIUM 9.3 mg/dL (8.5-10.1)
[2024-05-09 08:15] LABS: MAGNESIUM 2.1 mg/dL (1.8-2.4)
[2024-05-09 08:19] LABS: PHOSPHOROUS 3.4 mg/dL (2.5-4.9)
[2024-05-09] MEDS: FUROSEMIDE 40 MG TABLET (FP) PO SCH (09:13)
[2024-05-09] MEDS ORDERED: FUROSEMIDE 40 MG/4 ML INJECTABLE VIAL IVPUSH SCH (10:00)
== END 2024-05-09 15:00 | disposition home or self-care (01) | DRG 291 ==
LOC: JER 22:21 → JERBED 05-05 02:10 → J4W 05-05 05:45 → OBSVTOIN 05-07 16:46
PROVIDERS: ADMIT Internal Medicine; ATTEND Internal Medicine
DX: I11.0 Hypertensive heart disease with heart failure (principal); I50.33 Acute on chronic diastolic (congestive) heart failure; J96.01 Acute respiratory failure with hypoxia; I48.0 Paroxysmal atrial fibrillation; Z79.01 Long term (current) use of anticoagulants; J44.9 Chronic obstructive pulmonary disease, unspecified; E78.5 Hyperlipidemia, unspecified
CPT/HCPCS: 0241U-QW; 36415; 71045-TC-FY; 80048; 80053; 80061; 81003; 82803; 82962; 83735; 83880; 84100; 84443; 84484; 85025; 85027; 93005; 93010; 94640; 94660; 94761; 97116-GP; 97162-GP; 99285-25; G0378